=== PATIENT | male | born 1960 ===

== ENCOUNTER 2018-11-01 14:24 | Inpatient (IN) | payer MEDICARE ==
[2018-11-01] MEDS ORDERED: Nitroglycerin 2% Ointment Foilpak UD TOP STA (15:16)
[2018-11-01 15:36] LABS: BASO % 0.3 % (0.0-2.0); EOS % 0.4 % (0.0-4.0); HEMOGLOBIN 13.9 g/dL (12.0-18.0); LYMPH # 1.4 K/uL (1.0-4.3); LYMPH % 11.8 % (20.0-40.0); MEAN CELL VOLUME 89.7 fl (80.0-94.0); MEAN CORPUSCULAR HEMOGLOBIN 31.6 pg (27.0-31.0); MEAN CORPUSCULAR HGB CONC 35.3 g/dL (33.0-37.0); MEAN PLATELET VOLUME 10.7 fl (7.2-11.7); MONO # 1.1 K/uL (0.0-0.8); MONO % 9.2 % (0.0-10.0); NEUT # 9.2 K/uL (1.8-7.0); NEUT % 78.3 % (50.0-75.0); RBC 4.38 Mil/uL (4.40-5.90); RED CELL DISTRIBUTION WIDTH 13.7 % (11.5-14.5); WHITE BLOOD COUNT 11.8 K/uL (4.8-10.8)
--- NOTE | 2018-11-01 15:37 | ED PDOC ---
HPI: Chest Pain Time Seen by Provider: 11/01/18 15:05 Chief Complaint (Nursing): Chest Pain Chief Complaint (Provider): Chest Pain History Per: Patient History/Exam Limitations: no limitations Onset/Duration Of Symptoms: Hrs Current Symptoms Are (Timing): Still Present Additional Complaint(s): Patient is a 58 y/o male with a PMHx of anxiety, CAD, COPD, diabetes, HTN, and hypercholesterolemia who presents to the ED for evaluation of constant, "needle- like" left-sided chest pain radiating into his left arm since 3:00 this morning. Patient states he has had cardiac related chest pain in the past but it was always in the middle or to the right side of his chest. Patient denies SOB, leg pain or swelling, and lightheadedness. Patient reports he was afraid to take rem aining Nitroglycerin since this chest pain was different. PCP: Dr. Sj Whitt Bobbin Collector: Dr. Escoto Past Medical History Reviewed: Historical Data, Nursing Documentation, Vital Signs Vital Signs: Last Vital Signs Temp 98.6 F 11/01/18 14:32 Pulse 94 H 11/01/18 14:32 Resp 16 11/01/18 14:32 BP 148/83 11/01/18 14:32 Pulse Ox 99 11/01/18 14:32 - Medical History PMH: Anxiety, CAD, COPD, Diabetes, HTN, Hypercholesterolemia Denies: Chronic Kidney Disease - Surgical History Other surgeries: abscess on back removal, angiocatheterization, right leg stent - Family History Family History: States: Hypertension - Social History Current smoker - smoking cessation education provided: No Ex-Smoker (has not smoked in the last 12 months): No - Allergies Allergies/Adverse Reactions: Allergies Allergy/AdvReac Type Severity Reaction Status Date / Time No Known Allergies Allergy Verified 12/30/12 06:25 Review of Systems ROS Statement: Except As Marked, All Systems Reviewed And Found Negative (as per HPI) Cardiovascular: Positive for: Chest Pain (left-sided) Respiratory: Negative for: Shortness of Breath Musculoskeletal: Positive for: Arm Pain (left). Negative for: Leg Pain (or swelling) Neurological: Negative for: Other (lightheadedness) Physical Exam - Reviewed Nursing Documentation Reviewed: Yes Vital Signs Reviewed: Yes - Physical Exam Appears: Positive for: Non-toxic, No Acute Distress Head Exam: Positive for: ATRAUMATIC, NORMOCEPHALIC Skin: Positive for: Warm, Dry Eye Exam: Positive for: EOMI, PERRL ENT: Negative for: Pharyngeal Erythema, Tonsillar Exudate Neck: Positive for: Painless ROM, Supple Cardiovascular/Chest: Positive for: Regular Rate, Rhythm. Negative for: Murmur Respiratory: Positive for: Normal Breath Sounds. Negative for: Respiratory Distress Gastrointestinal/Abdominal: Positive for: Soft. Negative for: Tenderness Back: Positive for: Normal Inspection. Negative for: Decreased ROM Extremity: Positive for: Normal ROM. Negative for: Deformity Lymphatic: Negative for: Adenopathy Neurological/Psych: Positive for: Awake, Alert, Mood/Affect (Anxious). Negative for: Motor/Sensory Deficits - Laboratory Results Result Diagrams: 11/01/18 15:24 11/01/18 15:24 - ECG ECG: Positive for: Interpreted By Ca ECG Rhythm: Positive for: Normal QRS, Normal ST Segment, Sinus Rhythm Rate: 92 O2 Sat by Pulse Oximetry: 99 (RA) Pulse Ox Interpretation: Normal - Radiology X-Ray: Interpreted by Ca X-Ray Interpretation: No Acute Disease - Progress Re-evaluation Time: 17:00 Condition: Unchanged - Critical Care Total Time (In Min): 30 Documented Critical Care: Time excludes all time spent performint seperately billable procedures Medical Decision Making Medical Decision Making: Time: 1523 Impression: Chest Pain with Cardiac Risk Factors DDx includes but not limited to ACS, PE, Angina, Costochondritis, Anxiety, and Reflux. Plan: Type and Screen EKG BNP CMP Drug Screen Magnesium Phosphorus TSH Troponin I Urine Dipstick CBC D-Dimer PTT Prothrombin Time Ecotrin 162 mg PO Nitroglycerin 0.5 ea TOP IV Insertion 1645 Labs demonstrate elevated troponin. EMETERIO Perry Cardiology test lead application testing who came to evaluate pt and recommends to initiate heparin bolus/infusion and ntg drip and ICU placement. EMETERIO [facility] and Dr Fleming Client Advocate. 1730 UDS +cocaine. Per Dr Perry continue with above management. Scribe Attestation: Documented by Garrett Sin, acting as a scribe for Torrie Rivera MD. Provider Scribe Attestation: All medical record entries made by the Scribe were at my direction and personally dictated by me. I have reviewed the chart and agree that the record accurately reflects my personal performance of the history, physical exam, medical decision making, and the department course for this patient. I have also personally directed, reviewed, and agree with the discharge instructions and disposition. Disposition - Clinical Impression Clinical Impression: Cocaine abuse, Chest pain, NSTEMI (non-ST elevated myocardial infarction) Counseled Patient/Family Regarding: Studies Performed, Diagnosis - Disposition Disposition Time: 16:45 Condition: CRITICAL - Pt Status Changed To: Hospital Disposition Of: Inpatient - Admit Certification Admit to Inpatient:: After my assessment, the patient will require hospitalization for at least two midnights. This is because of the severity of symptoms shown, intensity of services needed, and/or the medical risk in this patient being treated as an outpatient. - POA Present On Arrival: None
[2018-11-01 15:45] LABS: ALB/GLOB RATIO 1.3 (1.0-2.1); ALBUMIN 4.3 g/dL (3.5-5.0); ALT/SGPT 29 U/L (21-72); AST/SGOT 27 U/L (17-59); BLOOD UREA NITROGEN 24 mg/dl (9-20); CALCIUM 9.4 mg/dL (8.4-10.2); GFR NON-AFRICAN AMERICAN > 60
[2018-11-01 16:02] LABS: INR 1.1; PROTHROMBIN TIME 12.1 Seconds (9.8-13.1)
[2018-11-01 16:05] LABS: PARTIAL THROMBOPLASTIN TIME 29.2 Seconds (25.6-37.1)
[2018-11-01 16:14] LABS: B-TYPE NATRIURETIC PEPTIDE 126 pg/ml (0-900)
--- NOTE | 2018-11-01 16:48 | RAD ---
Date of service: 11/01/2018 HISTORY: Chest pain COMPARISON: Comparison chest dated 06/18/2012. TECHNIQUE: Chest PA and lateral views FINDINGS: LUNGS: No acute consolidation. Small nodular density seen in the right lateral lower lung field overlying the right anterior 4th rib may represent granuloma or parenchymal nodule and appears relatively unchanged from prior study PLEURA: No significant pleural effusion identified. No pneumothorax apparent. CARDIOVASCULAR: No aortic atherosclerotic calcification present. Normal cardiac size. No pulmonary vascular congestion. OSSEOUS STRUCTURES: Mild multilevel degenerative spondylosis of the thoracic spine VISUALIZED UPPER ABDOMEN: Normal. OTHER FINDINGS: None. IMPRESSION: No acute consolidation. Small nodular density seen in the right lateral lower lung field overlying the right anterior 4th rib may represent granuloma or parenchymal nodule and appears relatively unchanged from prior study
[2018-11-01 16:49] LABS: BARBITURATES, UR NEGATIVE (NEGATIVE); BENZODIAZEPINES, UR NEGATIVE (NEGATIVE); OPIATES, UR NEGATIVE (NEGATIVE); PHENCYCLIDINE, UR NEGATIVE (NEGATIVE)
[2018-11-01] MEDS ORDERED: Nitroglycerin 50mg in D5W 50 MG/250 ML BOTTLE IV STA (16:51)
[2018-11-01] MEDS ORDERED: Nitroglycerin 50mg in D5W 50 MG/250 ML BOTTLE IV ONE (17:43)
[2018-11-01 18:02] VITALS: BMI 25.7
[2018-11-01] MEDS: Heparin 25,000units in D5W 25,000 UNITS/250 ML BAG IV SCH (18:09)
--- NOTE | 2018-11-01 18:12 | CP.PCM.HP ---
<Shalini Oshea - Last Filed: 11/01/18 19:21> History of Present Illness - History of Present Illness History of Present Illness: 58 y/o male with a PMHx of anxiety, CAD, COPD, diabetes, HTN, and hypercholesterolemia presents to the ED complaining of left-sided chest pain onset 3 am this morning. Described as constant, "needle-like" radiating to his left arm. Patient states he has had chest pain in the past but not as strong as this one. He reports taking Advil 2 tablets w/o relief. Patient endorses having Nitroglycerin SL at home but he was afraid to take it. Patient denies SOB, palpitations, dizziness/lightheadedness, leg pain or swelling, no recent illness, headaches, diaphoresis, no urinary sx or changes in BM. Patient also denies ilicit drugs use. PCP: Dr. Sj Whitt Marine Diesel Technician: Dr. Escoto PMH: Anxiety, CAD, COPD, Diabetes, HTN, Hypercholesterolemia PSH: removal of abscess in the back, angiocatheterization, right leg stent FHM: mother with HTN, CA and dementia Meds: as bellow NKDA SH: denies tobacco, + etoh socially, denies drugs use (utox + for cocaine) Present on Admission - Present on Admission Any Indicators Present on Admission: No Review of Systems - Review of Systems All systems: reviewed and no additional remarkable complaints except (HPI) Past Patient History - Infectious Disease Hx of Infectious Diseases: None - Past Social History Smoking Status: Never Smoked - CARDIAC Hx Hypercholesterolemia: Yes Hx Hypertension: Yes - PULMONARY Hx Chronic Obstructive Pulmonary Disease (COPD): Yes - NEUROLOGICAL Hx Neurological Disorder: No - HEENT Hx HEENT Problems: No - RENAL Hx Chronic Kidney Disease: No - ENDOCRINE/METABOLIC Hx Endocrine Disorders: No - HEMATOLOGICAL/ONCOLOGICAL Hx Blood Disorders: No - INTEGUMENTARY Hx Dermatological Problems: No - MUSCULOSKELETAL/RHEUMATOLOGICAL Hx Musculoskeletal Disorders: No - GASTROINTESTINAL Hx Gastrointestinal Disorders: No - GENITOURINARY/GYNECOLOGICAL Hx Genitourinary Disorders: No - PSYCHIATRIC Hx Anxiety: Yes - SURGICAL HISTORY Hx Surgeries: No Meds Allergies/Adverse Reactions: Allergies Allergy/AdvReac Type Severity Reaction Status Date / Time No Known Allergies Allergy Verified 12/30/12 06:25 Physical Exam - Constitutional Appears: Non-toxic, No Acute Distress - Head Exam Head Exam: NORMAL INSPECTION - Eye Exam Eye Exam: EOMI, PERRL. absent: Nystagmus - ENT Exam ENT Exam: Mucous Membranes Moist - Neck Exam Neck exam: Positive for: Full Rom. Negative for: Lymphadenopathy, Tenderness, Thyromegaly - Respiratory Exam Respiratory Exam: Clear to Auscultation Bilateral, NORMAL BREATHING PATTERN. absent: Chest Wall Tenderness, Rales, Wheezes, Respiratory Distress - Cardiovascular Exam Cardiovascular Exam: REGULAR RHYTHM, +S1, +S2. absent: Tachycardia, Systolic Murmur - GI/Abdominal Exam GI & Abdominal Exam: Normal Bowel Sounds, Soft. absent: Distended, Tenderness - Extremities Exam Extremities exam: Negative for: calf tenderness, pedal edema - Neurological Exam Neurological exam: Alert, CN II-XII Intact, Oriented x3 - Psychiatric Exam Psychiatric exam: Normal Mood - Skin Skin Exam: Dry, Normal Color, Warm Results - Vital Signs Recent Vital Signs: Last Vital Signs Temp 98.6 F 11/01/18 14:32 Pulse 92 H 11/01/18 18:05 Resp 16 11/01/18 14:32 BP 134/70 11/01/18 17:49 Pulse Ox 99 11/01/18 18:05 - Labs Result Diagrams: 11/01/18 15:24 11/01/18 15:24 Labs: Laboratory Results - last 24 hr 11/01/18 11/01/18 11/01/18 15:24 15:24 15:24 WBC 11.8 H RBC 4.38 L Hgb 13.9 Hct 39.3 MCV 89.7 MCH 31.6 H MCHC 35.3 RDW 13.7 Plt Count 224 MPV 10.7 Neut % (Auto) 78.3 H Lymph % (Auto) 11.8 L Gentry % (Auto) 9.2 Eos % (Auto) 0.4 Baso % (Auto) 0.3 Neut # (Auto) 9.2 H Lymph # (Auto) 1.4 Gentry # (Auto) 1.1 H Eos # (Auto) 0.0 Baso # (Auto) 0.0 PT 12.1 INR 1.1 APTT 29.2 D-Dimer, Quantitative 216 Sodium 137 Potassium 3.7 Chloride 102 Carbon Dioxide 22 Anion Gap 17 BUN 24 H Creatinine 0.9 Est GFR ( Amer) > 60 Est GFR (Non-Af Amer) > 60 Random Glucose 204 H Calcium 9.4 Phosphorus 3.1 Magnesium 2.1 Total Bilirubin 0.6 AST 27 ALT 29 Alkaline Phosphatase 77 Troponin I 0.1520 H* NT-Pro-B Natriuret Pep 126 Total Protein 7.6 Albumin 4.3 Globulin 3.3 Albumin/Globulin Ratio 1.3 TSH 3rd Generation 1.83 Urine Opiates Screen Urine Methadone Screen Ur Barbiturates Screen Ur Phencyclidine Scrn Ur Amphetamines Screen U Benzodiazepines Scrn U Oth Cocaine Metabols U Cannabinoids Screen Blood Type Antibody Screen BBK History Checked 11/01/18 11/01/18 15:38 16:02 WBC RBC Hgb Hct MCV MCH MCHC RDW Plt Count MPV Neut % (Auto) Lymph % (Auto) Gentry % (Auto) Eos % (Auto) Baso % (Auto) Neut # (Auto) Lymph # (Auto) Gentry # (Auto) Eos # (Auto) Baso # (Auto) PT INR APTT D-Dimer, Quantitative Sodium Potassium Chloride Carbon Dioxide Anion Gap BUN Creatinine Est GFR ( Amer) Est GFR (Non-Af Amer) Random Glucose Calcium Phosphorus Magnesium Total Bilirubin AST ALT Alkaline Phosphatase Troponin I NT-Pro-B Natriuret Pep Total Protein Albumin Globulin Albumin/Globulin Ratio TSH 3rd Generation Urine Opiates Screen Negative Urine Methadone Screen Negative Ur Barbiturates Screen Negative Ur Phencyclidine Scrn Negative Ur Amphetamines Screen Negative U Benzodiazepines Scrn Negative U Oth Cocaine Metabols Positive H U Cannabinoids Screen Negative Blood Type A POSITIVE Antibody Screen Negative BBK History Checked No verified bt Assessment & Plan - Assessment and Plan (Free Text) Assessment: 58 yo Male patient with PMH of anxiety, CAD, COPD, Diabetes, HTN and HLD is admitted due to NSTEMI. Plan: NSTEMI - admit to [facility] - troponin x1 elevated, f/u trending - EKG: Normal Sinus Rhythm, normal QRS, no ST changes. - s/p nitro top and ASA - Utox + cocaine - on heparin bolus/infusion and nitro drip - Cardio consulted, recs appreciated - Critical care consulted, appreciated input. - continue ASA - labs in am. Cocaine abuse - utox + cocaine - pt denies use HTN - chronic controlled - continue home meds Diabetes Mellitus - controlled - sliding scale coverage - accuchecks CAD - cath 4 yrs ago - stable - continue home meds HDL - on statin - lipid panel in am DVT ppx - on heparin drip Case discussed with Dr Ryan <Jonathan Ryan - Last Filed: 11/01/18 23:45> Results - Vital Signs Recent Vital Signs: Last Vital Signs Temp 98.3 F 11/01/18 20:15 Pulse 74 11/01/18 22:00 Resp 16 11/01/18 22:00 BP 120/81 11/01/18 22:00 Pulse Ox 97 11/01/18 22:00 - Labs Result Diagrams: 11/01/18 15:24 11/01/18 15:24 Labs: Laboratory Results - last 24 hr 11/01/18 11/01/18 11/01/18 15:24 15:24 15:24 WBC 11.8 H RBC 4.38 L Hgb 13.9 Hct 39.3 MCV 89.7 MCH 31.6 H MCHC 35.3 RDW 13.7 Plt Count 224 MPV 10.7 Neut % (Auto) 78.3 H Lymph % (Auto) 11.8 L Gentry % (Auto) 9.2 Eos % (Auto) 0.4 Baso % (Auto) 0.3 Neut # (Auto) 9.2 H Lymph # (Auto) 1.4 Gentry # (Auto) 1.1 H Eos # (Auto) 0.0 Baso # (Auto) 0.0 PT 12.1 INR 1.1 APTT 29.2 D-Dimer, Quantitative 216 Sodium 137 Potassium 3.7 Chloride 102 Carbon Dioxide 22 Anion Gap 17 BUN 24 H Creatinine 0.9 Est GFR ( Amer) > 60 Est GFR (Non-Af Amer) > 60 POC Glucose (mg/dL) Random Glucose 204 H Calcium 9.4 Phosphorus 3.1 Magnesium 2.1 Total Bilirubin 0.6 AST 27 ALT 29 Alkaline Phosphatase 77 Troponin I 0.1520 H* NT-Pro-B Natriuret Pep 126 Total Protein 7.6 Albumin 4.3 Globulin 3.3 Albumin/Globulin Ratio 1.3 TSH 3rd Generation 1.83 Urine Color Urine Clarity Urine pH Ur Specific [place] Urine Protein Urine Glucose (UA) Urine Ketones Urine Blood Urine Nitrate Urine Bilirubin Urine Urobilinogen Ur Leukocyte Esterase Urine RBC (Auto) Urine Microscopic WBC Ur Squamous Epith Cells Urine Opiates Screen Urine Methadone Screen Ur Barbiturates Screen Ur Phencyclidine Scrn Ur Amphetamines Screen U Benzodiazepines Scrn U Oth Cocaine Metabols U Cannabinoids Screen Blood Type Antibody Screen BBK History Checked 11/01/18 11/01/18 11/01/18 15:38 16:02 19:45 WBC RBC Hgb Hct MCV MCH MCHC RDW Plt Count MPV Neut % (Auto) Lymph % (Auto) Gentry % (Auto) Eos % (Auto) Baso % (Auto) Neut # (Auto) Lymph # (Auto) Gentry # (Auto) Eos # (Auto) Baso # (Auto) PT INR APTT D-Dimer, Quantitative Sodium Potassium Chloride Carbon Dioxide Anion Gap BUN Creatinine Est GFR ( Amer) Est GFR (Non-Af Amer) POC Glucose (mg/dL) Random Glucose Calcium Phosphorus Magnesium Total Bilirubin AST ALT Alkaline Phosphatase Troponin I NT-Pro-B Natriuret Pep Total Protein Albumin Globulin Albumin/Globulin Ratio TSH 3rd Generation Urine Color Yellow Urine Clarity Clear Urine pH 6.0 Ur Specific [place] 1.023 Urine Protein Negative Urine Glucose (UA) >=500 Urine Ketones Negative Urine Blood Negative Urine Nitrate Negative Urine Bilirubin Negative Urine Urobilinogen 1.0 Ur Leukocyte Esterase Neg Urine RBC (Auto) 2 Urine Microscopic WBC 1 Ur Squamous Epith Cells < 1 Urine Opiates Screen Negative Urine Methadone Screen Negative Ur Barbiturates Screen Negative Ur Phencyclidine Scrn Negative Ur Amphetamines Screen Negative U Benzodiazepines Scrn Negative U Oth Cocaine Metabols Positive H U Cannabinoids Screen Negative Blood Type A POSITIVE Antibody Screen Negative BBK History Checked No verified bt 11/01/18 21:43 WBC RBC Hgb Hct MCV MCH MCHC RDW Plt Count MPV Neut % (Auto) Lymph % (Auto) Gentry % (Auto) Eos % (Auto) Baso % (Auto) Neut # (Auto) Lymph # (Auto) Gentry # (Auto) Eos # (Auto) Baso # (Auto) PT INR APTT D-Dimer, Quantitative Sodium Potassium Chloride Carbon Dioxide Anion Gap BUN Creatinine Est GFR ( Amer) Est GFR (Non-Af Amer) POC Glucose (mg/dL) 198 H Random Glucose Calcium Phosphorus Magnesium Total Bilirubin AST ALT Alkaline Phosphatase Troponin I NT-Pro-B Natriuret Pep Total Protein Albumin Globulin Albumin/Globulin Ratio TSH 3rd Generation Urine Color Urine Clarity Urine pH Ur Specific [place] Urine Protein Urine Glucose (UA) Urine Ketones Urine Blood Urine Nitrate Urine Bilirubin Urine Urobilinogen Ur Leukocyte Esterase Urine RBC (Auto) Urine Microscopic WBC Ur Squamous Epith Cells Urine Opiates Screen Urine Methadone Screen Ur Barbiturates Screen Ur Phencyclidine Scrn Ur Amphetamines Screen U Benzodiazepines Scrn U Oth Cocaine Metabols U Cannabinoids Screen Blood Type Antibody Screen BBK History Checked Attending/Attestation - Attestation I have personally seen and examined this patient.: Yes I have fully participated in the care of the patient.: Yes I have reviewed all pertinent clinical information: Yes Notes (Text): 11/01/18 23:45 Patient seen and examined with resident. Case discussed and agreed with assessment and plan of management.
[2018-11-01 20:15] LABS: SQUAMOUS EPITHIAL < 1 /hpf (0-5); URINE BILIRUBIN NEGATIVE (NEGATIVE); URINE BLOOD NEGATIVE (NEGATIVE); URINE CLARITY CLEAR (Clear); URINE COLOR YELLOW (YELLOW); URINE GLUCOSE (UA) >=500 mg/dL (NEGATIVE); URINE LEUKOCYTE ESTERASE NEG Leu/uL (Negative); URINE PROTEIN NEGATIVE (NEGATIVE)
[2018-11-01] MEDS: Insulin Lispro (humaLOG) 100 Units/ml Inj SC SCH (23:00)
--- NOTE | 2018-11-02 04:08 | CON ---
DATE: 11/01/2018 CARDIOLOGY CONSULTATION REASON FOR CONSULTATION: Chest pain. HISTORY OF PRESENT ILLNESS: The patient is a 58-year-old male who has a history of coronary artery disease, underwent coronary stenting some two years ago at [facility]. He presented because of retrosternal chest pain, not radiating. The patient denies any associated diaphoresis or shortness of breath. SOCIAL HISTORY: The patient is a smoker. Occasional drinker. He is retired. He used to work in cleaning apartment buildings . MEDICATIONS: Home medications included Nitro-Dur, Plavix. REVIEW OF SYSTEMS: No nausea or vomiting. No fever or chills. PHYSICAL EXAMINATION: GENERAL: The patient is a middle-aged male who does not appear to be in any distress. VITAL SIGNS: Blood pressure 148/83, heart rate 94, temperature 98.6, respirations 16. HEENT: Normocephalic. NECK: No JVD. CHEST: Clear. HEART: S1 and S2, regular. ABDOMEN: Soft. EXTREMITIES: No edema. LABORATORY DATA: Urine drug screen is positive for cocaine. SMA-7: Sodium 137, potassium 3.7, chloride 102, CO2 of 22, glucose 104, BUN 24, creatinine is 0.9. Troponin is 0.152. PT, PTT, INR and D-Dimer are within normal limits. CBC: WBC is 15.7, hemoglobin today is 9.3, white count is 11.8, platelet count 20,000 to 24,000. EKG revealed sinus rhythm, subtle lateral ST segment depression. ASSESSMENT: 1. Chest pain, considered [id number] myocardial infarction. 2. Cocaine abuse. 3. History of coronary artery stenting two years ago at [facility]. RECOMMENDATIONS: Admit the patient to CCU. Start intravenous heparin infusion in a therapeutic regimen as well as a Tridil infusion. The patient received aspirin 162 mg and has been on daily Plavix at home, which will be continued. I will avoid beta-blockers in view of recent cocaine abuse. Start Lipitor at 40 mg once a day. Obtain a bedside echo. The case was discussed with Dr. Siddiqi, the supervisor show operations on-call today. If there is no relief of chest pain on current medications, an urgent cardiac catheterization will be considered. Brad Osei MD
--- NOTE | 2018-11-02 04:31 | CON ---
PROCEDURE DATE: 11/01/2018 The patient is seen at the bedside at the request of the ER physician for evaluation of left precordial pain with radiation to left arm. HISTORY OF PRESENT ILLNESS: Ms. Barros is a 58-year-old male, nonsmoker, social EtOH with history significant for anxiety, coronary artery disease, status post cardiac catheterization in the past with unclear details, also known to have diabetes, hypertension, and hyperlipidemia. The patient was seen by Dr. Peterson, his clipper automatic, and given pain medications for the pain on the left chest. The patient took three out of the five pills together and did not feel better, hence prompted to come to emergency room for further evaluation. In ER, the patient was noted to have a temperature 98.6, heart rate 94 and regular, respiratory rate 16, blood pressure 148/83, pulse oximetry 99% on room air. Examination was unremarkable. Lab data showed mild leukocytosis, normal BUN and creatinine, normal chest x-ray, but elevated troponin. EKG unremarkable. The patient was also noted to have cocaine positive in the urine drug screen. After consultation with Dr. Osei, pressure dispatcher; the patient was started on heparin and Tridil drip and being admitted to ICU. REVIEW OF SYSTEMS: Denies fever, chills, cough, or shortness of breath. Pain is described as needle-like sensation, more on the left side of chest with radiation to left arm since this morning. No nausea or vomiting. No dizziness. No headache. No palpitations. ALLERGIES: NONE DOCUMENTED. MEDICATIONS: His medications outside include pain medications and medication for diabetes and hypertension, but the names are not known. PHYSICAL EXAMINATION: GENERAL: Middle-aged, well-built male, oriented to name, place, and time. VITAL SIGNS: Temperature 98.6, heart rate 92 and regular, blood pressure 148/83, respiratory rate 16, saturation 99% on room air. Weight 180 pounds. HEAD, EYES, EARS, NOSE, AND THROAT: Pupils are reactive. Conjunctivae pink. Sclerae are white. NECK: Supple. Trachea is central. CHEST: Bilateral breath sounds, clear to auscultation. HEART: Rhythm regular. S1, S2 normal intensity. No S3, S4 gallop. No audible murmur. ABDOMEN: Bowel sounds are present. Soft. Liver and spleen not palpable. Bladder not distended. EXTREMITIES: No clubbing, cyanosis, or edema. NEUROLOGIC: Nonfocal. LABORATORY DATA: WBC 11.8, hemoglobin 13.9, hematocrit 39.3, platelet count of 224, neutrophils 78.3, lymphocytes 11.8. PT 12.1, INR 1.1, PTT of 29.2, D-dimer 216. SMA-7; sodium 137, potassium 3.7, chloride of 102, CO2 of 22, blood urea nitrogen 24, creatinine 0.9, random glucose 204, calcium 9.4, phosphorus 3.1, magnesium 2.1, total bilirubin 0.6, AST 27, and ALT 29. Troponin 0.152, albumin of 4.3, and TSH of 1.83. Drug toxic screen positive for cocaine metabolites. Chest x-ray unremarkable. EKG reportedly with no ST-T changes. IMPRESSION: A 58-year-old male with a history significant for diabetes, hypertension, hyperlipidemia, previous coronary artery disease, status post cardiac catheterization, questionable stent placement with history of pain in the lung and his back, seen by clipper automatic, given pain medications, took extra three pills, now presenting with pain on the left precordial area with radiation to the left arm. Chest x-ray, no evidence of pneumonia. EKG unremarkable. Troponin mildly elevated. Cocaine positive. We will evaluate with further troponin two more times. Follow up the EKG. We will continue Tridil and heparin as recommended by Cardiology consult. Aspirin 325 mg p.o. given. Add metoprolol 12.5 mg p.o. twice daily. Heart healthy diet. Verify the medications that the patient is taking for diabetes and cholesterol, we will resume as it is available. Nik Fleming MD
[2018-11-02 06:24] LABS: BASO # 0.1 K/uL (0.0-0.2); BASO % 0.7 % (0.0-2.0); EOS # 0.1 K/uL (0.0-0.7); EOS % 1.1 % (0.0-4.0); HEMOGLOBIN 13.5 g/dL (12.0-18.0); LYMPH # 2.5 K/uL (1.0-4.3); LYMPH % 29.7 % (20.0-40.0); MEAN CELL VOLUME 90.5 fl (80.0-94.0); MEAN CORPUSCULAR HEMOGLOBIN 31.2 pg (27.0-31.0); MEAN CORPUSCULAR HGB CONC 34.5 g/dL (33.0-37.0); MEAN PLATELET VOLUME 10.8 fl (7.2-11.7); MONO # 0.8 K/uL (0.0-0.8); MONO % 10.1 % (0.0-10.0); NEUT # 4.8 K/uL (1.8-7.0); NEUT % 58.4 % (50.0-75.0); RBC 4.33 Mil/uL (4.40-5.90); RED CELL DISTRIBUTION WIDTH 13.7 % (11.5-14.5); WHITE BLOOD COUNT 8.3 K/uL (4.8-10.8)
[2018-11-02] MEDS: Levothyroxine 25 MCG TAB PO SCH (06:27)
[2018-11-02] MEDS: Insulin Lispro (humaLOG) 100 Units/ml Inj SC SCH ×4 (06:36→21:30)
[2018-11-02 06:45] LABS: LDL CHOLESTEROL 131 mg/dL (0-129)
[2018-11-02 06:49] LABS: BLOOD UREA NITROGEN 22 mg/dl (9-20); CALCIUM 9.1 mg/dL (8.4-10.2); GFR NON-AFRICAN AMERICAN > 60; HDL CHOLESTEROL 28 MG/DL (30-70)
--- NOTE | 2018-11-02 07:33 | CP.CCUPN ---
CCU Subjective - Physician Review Events Since Last Encounter (Free Text): 11/02/18 18:46 The patient was Seen/interviewed and examined by me at the bedside during ICU round, Medical records reviewed and Management issues were discussed and formulated with the house staff. Events reviewed Patient is 58 years old male with past medical history of hypertension, hypercholesterolemia, diabetes, coronary artery disease status post stent, COPD and anxiety Who presented to the emergency room for evaluation of continence tent left sided chest pain No EKG changes but borderline positive trop Patient has been on heparin drip and nitroglycerin drip Doing better today, chest pain-free Patient is scheduled for cardiac cath on Friday CCU Objective - Vital Signs / Intake & Output Vital Signs (Last 4 hours): Vital Signs Temp Pulse Resp BP Pulse Ox 11/02/18 05:58 98 F 86 18 109/76 95 11/02/18 04:00 68 14 116/71 98 Intake and Output (Last 8hrs): Intake & Output 11/01/18 11/02/18 11/02/18 22:59 06:59 14:59 Intake Total 31 164 Output Total 180 200 Balance -149 -36 Weight 159 lb 8 oz Intake: IV 31 104 Oral 60 Output: Urine 180 200 Urine, Voided 180 200 - Physical Exam Physical Exam Limitations: Positive for: Clinical Condition Head: Positive for: Atraumatic, Normocephalic Pupils: Positive for: PERRL. Negative for: Sluggish, Non-Reactive Extroacular Muscles: Positive for: EOMI Conjunctiva: Positive for: Normal. Negative for: Injected, Icteric Mouth: Positive for: Moist Mucous Membranes. Negative for: Dry, Drooling Neck: Positive for: Normal Range of Motion, Trachea Midline. Negative for: Meningeal Signs, MIDLINE TENDERNESS, Paraspinal Tenderness, JVD, Lymphadenopathy, Bruit, Other Respiratory/Chest: Positive for: Clear to Auscultation, Good Air Exchange. Negative for: Respiratory Distress, Accessory Muscle Use Cardiovascular: Positive for: Regular Rate and Rhythm, Normal S1, S2. Negative for: Murmurs Abdomen: Positive for: Normal Bowel Sounds. Negative for: Tenderness, Distention Neurological: Positive for: GCS=15, CN II-XII Intact, Speech Normal Psychiatric: Positive for: Alert, Oriented x 3, Normal Insight, Normal Concentration - Medications Active Medications: Active Medications Generic Name Dose Route Start Last Admin Trade Name Freq PRN Reason Stop Dose Admin Amlodipine Besylate 10 mg 11/02/18 09:00 Norvasc PO DAILY [facility] Aspirin 81 mg 11/02/18 09:00 Aspirin Chewable PO DAILY [facility] Atorvastatin Calcium 40 mg 11/02/18 09:00 Lipitor PO DAILY [facility] Buspirone HCl 10 mg 11/02/18 09:00 Buspar PO DAILY [facility] Clopidogrel Bisulfate 75 mg 11/02/18 09:00 Plavix PO DAILY [facility] Docusate Sodium 100 mg 11/01/18 17:19 Colace PO BID PRN Constipation Fenofibrate 145 mg 11/02/18 09:00 Tricor PO DAILY [facility] Gabapentin 300 mg 11/02/18 09:00 Neurontin PO TID [facility] Heparin Sodium/Dextrose 25,000 units in 250 mls @ 10 mls/hr 11/01/18 17:00 11/01/18 18:09 Heparin 25,000 Units/250ml In D5w IV 10 mls/hr .Q24H YAZMIN Administration Protocol Nitroglycerin/Dextrose 50 mg in 250 mls @ 1.5 mls/hr 11/01/18 16:51 11/01/18 17:49 Nitroglycerin 50 Mg/250 Ml D5w IV 11/02/18 16:50 1.5 mls/hr .Q24H STA Administration Protocol 5 MCG/MIN Insulin Human Lispro 0 units 11/01/18 23:00 11/02/18 06:36 Humalog SC 1 u ACCU-CHECK YAZMIN Administration Protocol Levothyroxine Sodium 25 mcg 11/02/18 06:30 11/02/18 06:27 Synthroid PO 25 mcg DAILY@0630 [facility] Administration Montelukast Sodium 10 mg 11/02/18 09:00 Singulair PO DAILY [facility] Pantoprazole Sodium 40 mg 11/02/18 09:00 Protonix Ec Tab PO DAILY YAZMIN - Patient Studies Lab Studies: Lab Studies 11/02/18 11/02/18 11/02/18 Range/Units 06:18 06:05 06:05 WBC (4.8-10.8) K/uL RBC (4.40-5.90) Mil/uL Hgb (12.0-18.0) g/dL Hct (35.0-51.0) % MCV (80.0-94.0) fl MCH (27.0-31.0) pg MCHC (33.0-37.0) g/dL RDW (11.5-14.5) % Plt Count (130-400) K/uL MPV (7.2-11.7) fl Neut % (Auto) (50.0-75.0) % Lymph % (Auto) (20.0-40.0) % [place] % (Auto) (0.0-10.0) % Eos % (Auto) (0.0-4.0) % Baso % (Auto) (0.0-2.0) % Neut # (Auto) (1.8-7.0) K/uL Lymph # (Auto) (1.0-4.3) K/uL [place] # (Auto) (0.0-0.8) K/uL Eos # (Auto) (0.0-0.7) K/uL Baso # (Auto) (0.0-0.2) K/uL PT (9.8-13.1) Seconds INR APTT 56.7 H (25.6-37.1) Seconds D-Dimer, Quantitative (0-230) ng/mlDDU Sodium (132-148) mmol/l Potassium (3.6-5.0) MMOL/L Chloride (98-107) mmol/L Carbon Dioxide (22-30) mmol/L Anion Gap (10-20) BUN (9-20) mg/dl Creatinine (0.8-1.5) mg/dl Est GFR ( Amer) Est GFR (Non-Af Amer) POC Glucose (mg/dL) 175 H (65-110) mg/dL Random Glucose (75-110) mg/dL Calcium (8.4-10.2) mg/dL Phosphorus (2.5-4.5) mg/dl Magnesium (1.6-2.3) MG/DL Total Bilirubin (0.2-1.3) mg/dl AST (17-59) U/L ALT (21-72) U/L Alkaline Phosphatase (38-126) U/L Troponin I 0.5060 H* (0.00-0.120) ng/mL NT-Pro-B Natriuret Pep (0-900) pg/ml Total Protein (6.3-8.2) G/DL Albumin (3.5-5.0) g/dL Globulin (2.2-3.9) gm/dL Albumin/Globulin Ratio (1.0-2.1) Triglycerides (0-149) mg/DL Cholesterol (0-199) mg/dL LDL Cholesterol Direct (0-129) mg/dL HDL Cholesterol (30-70) MG/DL TSH 3rd Generation (0.46-4.68) mIU/ML Urine Color (YELLOW) Urine Clarity (Clear) Urine pH (5.0-8.0) Ur Specific [place] (1.003-1.030) Urine Protein (NEGATIVE) mg/dL Urine Glucose (UA) (NEGATIVE) mg/dL Urine Ketones (NEGATIVE) mg/dL Urine Blood (NEGATIVE) Urine Nitrate (NEGATIVE) Urine Bilirubin (NEGATIVE) Urine Urobilinogen (0.2-1.0) mg/dL Ur Leukocyte Esterase (Negative) Ector/uL Urine RBC (Auto) (0-3) /hpf Urine Microscopic WBC (0-5) /hpf Ur Squamous Epith Cells (0-5) /hpf Urine Opiates Screen (NEGATIVE) Urine Methadone Screen (NEGATIVE) Ur Barbiturates Screen (NEGATIVE) Ur Phencyclidine Scrn (NEGATIVE) Ur Amphetamines Screen (NEGATIVE) U Benzodiazepines Scrn (NEGATIVE) U Oth Cocaine Metabols (NEGATIVE) U Cannabinoids Screen (NEGATIVE) Blood Type Antibody Screen BBK History Checked 11/02/18 11/02/18 11/01/18 Range/Units 06:05 06:05 23:44 WBC 8.3 (4.8-10.8) K/uL RBC 4.33 L (4.40-5.90) Mil/uL Hgb 13.5 (12.0-18.0) g/dL Hct 39.2 (35.0-51.0) % MCV 90.5 (80.0-94.0) fl MCH 31.2 H (27.0-31.0) pg MCHC 34.5 (33.0-37.0) g/dL RDW 13.7 (11.5-14.5) % Plt Count 210 (130-400) K/uL MPV 10.8 (7.2-11.7) fl Neut % (Auto) 58.4 (50.0-75.0) % Lymph % (Auto) 29.7 (20.0-40.0) % [place] % (Auto) 10.1 H (0.0-10.0) % Eos % (Auto) 1.1 (0.0-4.0) % Baso % (Auto) 0.7 (0.0-2.0) % Neut # (Auto) 4.8 (1.8-7.0) K/uL Lymph # (Auto) 2.5 (1.0-4.3) K/uL [place] # (Auto) 0.8 (0.0-0.8) K/uL Eos # (Auto) 0.1 (0.0-0.7) K/uL Baso # (Auto) 0.1 (0.0-0.2) K/uL PT (9.8-13.1) Seconds INR APTT 54.3 H (25.6-37.1) Seconds D-Dimer, Quantitative (0-230) ng/mlDDU Sodium 136 (132-148) mmol/l Potassium 3.7 (3.6-5.0) MMOL/L Chloride 101 (98-107) mmol/L Carbon Dioxide 27 (22-30) mmol/L Anion Gap 12 (10-20) BUN 22 H (9-20) mg/dl Creatinine 1.1 (0.8-1.5) mg/dl Est GFR ( Amer) > 60 Est GFR (Non-Af Amer) > 60 POC Glucose (mg/dL) (65-110) mg/dL Random Glucose 172 H (75-110) mg/dL Calcium 9.1 (8.4-10.2) mg/dL Phosphorus (2.5-4.5) mg/dl Magnesium (1.6-2.3) MG/DL Total Bilirubin (0.2-1.3) mg/dl AST (17-59) U/L ALT (21-72) U/L Alkaline Phosphatase (38-126) U/L Troponin I (0.00-0.120) ng/mL NT-Pro-B Natriuret Pep (0-900) pg/ml Total Protein (6.3-8.2) G/DL Albumin (3.5-5.0) g/dL Globulin (2.2-3.9) gm/dL Albumin/Globulin Ratio (1.0-2.1) Triglycerides 457 H (0-149) mg/DL Cholesterol 188 (0-199) mg/dL LDL Cholesterol Direct 131 H (0-129) mg/dL HDL Cholesterol 28 L (30-70) MG/DL TSH 3rd Generation (0.46-4.68) mIU/ML Urine Color (YELLOW) Urine Clarity (Clear) Urine pH (5.0-8.0) Ur Specific [place] (1.003-1.030) Urine Protein (NEGATIVE) mg/dL Urine Glucose (UA) (NEGATIVE) mg/dL Urine Ketones (NEGATIVE) mg/dL Urine Blood (NEGATIVE) Urine Nitrate (NEGATIVE) Urine Bilirubin (NEGATIVE) Urine Urobilinogen (0.2-1.0) mg/dL Ur Leukocyte Esterase (Negative) Ector/uL Urine RBC (Auto) (0-3) /hpf Urine Microscopic WBC (0-5) /hpf Ur Squamous Epith Cells (0-5) /hpf Urine Opiates Screen (NEGATIVE) Urine Methadone Screen (NEGATIVE) Ur Barbiturates Screen (NEGATIVE) Ur Phencyclidine Scrn (NEGATIVE) Ur Amphetamines Screen (NEGATIVE) U Benzodiazepines Scrn (NEGATIVE) U Oth Cocaine Metabols (NEGATIVE) U Cannabinoids Screen (NEGATIVE) Blood Type Antibody Screen BBK History Checked 11/01/18 11/01/18 11/01/18 Range/Units 23:44 21:43 19:45 WBC (4.8-10.8) K/uL RBC (4.40-5.90) Mil/uL Hgb (12.0-18.0) g/dL Hct (35.0-51.0) % MCV (80.0-94.0) fl MCH (27.0-31.0) pg MCHC (33.0-37.0) g/dL RDW (11.5-14.5) % Plt Count (130-400) K/uL MPV (7.2-11.7) fl Neut % (Auto) (50.0-75.0) % Lymph % (Auto) (20.0-40.0) % [place] % (Auto) (0.0-10.0) % Eos % (Auto) (0.0-4.0) % Baso % (Auto) (0.0-2.0) % Neut # (Auto) (1.8-7.0) K/uL Lymph # (Auto) (1.0-4.3) K/uL [place] # (Auto) (0.0-0.8) K/uL Eos # (Auto) (0.0-0.7) K/uL Baso # (Auto) (0.0-0.2) K/uL PT (9.8-13.1) Seconds INR APTT (25.6-37.1) Seconds D-Dimer, Quantitative (0-230) ng/mlDDU Sodium (132-148) mmol/l Potassium (3.6-5.0) MMOL/L Chloride (98-107) mmol/L Carbon Dioxide (22-30) mmol/L Anion Gap (10-20) BUN (9-20) mg/dl Creatinine (0.8-1.5) mg/dl Est GFR ( Amer) Est GFR (Non-Af Amer) POC Glucose (mg/dL) 198 H (65-110) mg/dL Random Glucose (75-110) mg/dL Calcium (8.4-10.2) mg/dL Phosphorus (2.5-4.5) mg/dl Magnesium (1.6-2.3) MG/DL Total Bilirubin (0.2-1.3) mg/dl AST (17-59) U/L ALT (21-72) U/L Alkaline Phosphatase (38-126) U/L Troponin I 0.3930 H* (0.00-0.120) ng/mL NT-Pro-B Natriuret Pep (0-900) pg/ml Total Protein (6.3-8.2) G/DL Albumin (3.5-5.0) g/dL Globulin (2.2-3.9) gm/dL Albumin/Globulin Ratio (1.0-2.1) Triglycerides (0-149) mg/DL Cholesterol (0-199) mg/dL LDL Cholesterol Direct (0-129) mg/dL HDL Cholesterol (30-70) MG/DL TSH 3rd Generation (0.46-4.68) mIU/ML Urine Color Yellow (YELLOW) Urine Clarity Clear (Clear) Urine pH 6.0 (5.0-8.0) Ur Specific [place] 1.023 (1.003-1.030) Urine Protein Negative (NEGATIVE) mg/dL Urine Glucose (UA) >=500 (NEGATIVE) mg/dL Urine Ketones Negative (NEGATIVE) mg/dL Urine Blood Negative (NEGATIVE) Urine Nitrate Negative (NEGATIVE) Urine Bilirubin Negative (NEGATIVE) Urine Urobilinogen 1.0 (0.2-1.0) mg/dL Ur Leukocyte Esterase Neg (Negative) Ector/uL Urine RBC (Auto) 2 (0-3) /hpf Urine Microscopic WBC 1 (0-5) /hpf Ur Squamous Epith Cells < 1 (0-5) /hpf Urine Opiates Screen (NEGATIVE) Urine Methadone Screen (NEGATIVE) Ur Barbiturates Screen (NEGATIVE) Ur Phencyclidine Scrn (NEGATIVE) Ur Amphetamines Screen (NEGATIVE) U Benzodiazepines Scrn (NEGATIVE) U Oth Cocaine Metabols (NEGATIVE) U Cannabinoids Screen (NEGATIVE) Blood Type Antibody Screen BBK History Checked 11/01/18 11/01/18 11/01/18 Range/Units 16:02 15:38 15:24 WBC (4.8-10.8) K/uL RBC (4.40-5.90) Mil/uL Hgb (12.0-18.0) g/dL Hct (35.0-51.0) % MCV (80.0-94.0) fl MCH (27.0-31.0) pg MCHC (33.0-37.0) g/dL RDW (11.5-14.5) % Plt Count (130-400) K/uL MPV (7.2-11.7) fl Neut % (Auto) (50.0-75.0) % Lymph % (Auto) (20.0-40.0) % [place] % (Auto) (0.0-10.0) % Eos % (Auto) (0.0-4.0) % Baso % (Auto) (0.0-2.0) % Neut # (Auto) (1.8-7.0) K/uL Lymph # (Auto) (1.0-4.3) K/uL [place] # (Auto) (0.0-0.8) K/uL Eos # (Auto) (0.0-0.7) K/uL Baso # (Auto) (0.0-0.2) K/uL PT 12.1 (9.8-13.1) Seconds INR 1.1 APTT 29.2 (25.6-37.1) Seconds D-Dimer, Quantitative 216 (0-230) ng/mlDDU Sodium (132-148) mmol/l Potassium (3.6-5.0) MMOL/L Chloride (98-107) mmol/L Carbon Dioxide (22-30) mmol/L Anion Gap (10-20) BUN (9-20) mg/dl Creatinine (0.8-1.5) mg/dl Est GFR ( Amer) Est GFR (Non-Af Amer) POC Glucose (mg/dL) (65-110) mg/dL Random Glucose (75-110) mg/dL Calcium (8.4-10.2) mg/dL Phosphorus (2.5-4.5) mg/dl Magnesium (1.6-2.3) MG/DL Total Bilirubin (0.2-1.3) mg/dl AST (17-59) U/L ALT (21-72) U/L Alkaline Phosphatase (38-126) U/L Troponin I (0.00-0.120) ng/mL NT-Pro-B Natriuret Pep (0-900) pg/ml Total Protein (6.3-8.2) G/DL Albumin (3.5-5.0) g/dL Globulin (2.2-3.9) gm/dL Albumin/Globulin Ratio (1.0-2.1) Triglycerides (0-149) mg/DL Cholesterol (0-199) mg/dL LDL Cholesterol Direct (0-129) mg/dL HDL Cholesterol (30-70) MG/DL TSH 3rd Generation (0.46-4.68) mIU/ML Urine Color (YELLOW) Urine Clarity (Clear) Urine pH (5.0-8.0) Ur Specific [place] (1.003-1.030) Urine Protein (NEGATIVE) mg/dL Urine Glucose (UA) (NEGATIVE) mg/dL Urine Ketones (NEGATIVE) mg/dL Urine Blood (NEGATIVE) Urine Nitrate (NEGATIVE) Urine Bilirubin (NEGATIVE) Urine Urobilinogen (0.2-1.0) mg/dL Ur Leukocyte Esterase (Negative) Ector/uL Urine RBC (Auto) (0-3) /hpf Urine Microscopic WBC (0-5) /hpf Ur Squamous Epith Cells (0-5) /hpf Urine Opiates Screen Negative (NEGATIVE) Urine Methadone Screen Negative (NEGATIVE) Ur Barbiturates Screen Negative (NEGATIVE) Ur Phencyclidine Scrn Negative (NEGATIVE) Ur Amphetamines Screen Negative (NEGATIVE) U Benzodiazepines Scrn Negative (NEGATIVE) U Oth Cocaine Metabols Positive H (NEGATIVE) U Cannabinoids Screen Negative (NEGATIVE) Blood Type A POSITIVE Antibody Screen Negative BBK History Checked No verified bt 11/01/18 11/01/18 Range/Units 15:24 15:24 WBC 11.8 H (4.8-10.8) K/uL RBC 4.38 L (4.40-5.90) Mil/uL Hgb 13.9 (12.0-18.0) g/dL Hct 39.3 (35.0-51.0) % MCV 89.7 (80.0-94.0) fl MCH 31.6 H (27.0-31.0) pg MCHC 35.3 (33.0-37.0) g/dL RDW 13.7 (11.5-14.5) % Plt Count 224 (130-400) K/uL MPV 10.7 (7.2-11.7) fl Neut % (Auto) 78.3 H (50.0-75.0) % Lymph % (Auto) 11.8 L (20.0-40.0) % [place] % (Auto) 9.2 (0.0-10.0) % Eos % (Auto) 0.4 (0.0-4.0) % Baso % (Auto) 0.3 (0.0-2.0) % Neut # (Auto) 9.2 H (1.8-7.0) K/uL Lymph # (Auto) 1.4 (1.0-4.3) K/uL [place] # (Auto) 1.1 H (0.0-0.8) K/uL Eos # (Auto) 0.0 (0.0-0.7) K/uL Baso # (Auto) 0.0 (0.0-0.2) K/uL PT (9.8-13.1) Seconds INR APTT (25.6-37.1) Seconds D-Dimer, Quantitative (0-230) ng/mlDDU Sodium 137 (132-148) mmol/l Potassium 3.7 (3.6-5.0) MMOL/L Chloride 102 (98-107) mmol/L Carbon Dioxide 22 (22-30) mmol/L Anion Gap 17 (10-20) BUN 24 H (9-20) mg/dl Creatinine 0.9 (0.8-1.5) mg/dl Est GFR ( Amer) > 60 Est GFR (Non-Af Amer) > 60 POC Glucose (mg/dL) (65-110) mg/dL Random Glucose 204 H (75-110) mg/dL Calcium 9.4 (8.4-10.2) mg/dL Phosphorus 3.1 (2.5-4.5) mg/dl Magnesium 2.1 (1.6-2.3) MG/DL Total Bilirubin 0.6 (0.2-1.3) mg/dl AST 27 (17-59) U/L ALT 29 (21-72) U/L Alkaline Phosphatase 77 (38-126) U/L Troponin I 0.1520 H* (0.00-0.120) ng/mL NT-Pro-B Natriuret Pep 126 (0-900) pg/ml Total Protein 7.6 (6.3-8.2) G/DL Albumin 4.3 (3.5-5.0) g/dL Globulin 3.3 (2.2-3.9) gm/dL Albumin/Globulin Ratio 1.3 (1.0-2.1) Triglycerides (0-149) mg/DL Cholesterol (0-199) mg/dL LDL Cholesterol Direct (0-129) mg/dL HDL Cholesterol (30-70) MG/DL TSH 3rd Generation 1.83 (0.46-4.68) mIU/ML Urine Color (YELLOW) Urine Clarity (Clear) Urine pH (5.0-8.0) Ur Specific [place] (1.003-1.030) Urine Protein (NEGATIVE) mg/dL Urine Glucose (UA) (NEGATIVE) mg/dL Urine Ketones (NEGATIVE) mg/dL Urine Blood (NEGATIVE) Urine Nitrate (NEGATIVE) Urine Bilirubin (NEGATIVE) Urine Urobilinogen (0.2-1.0) mg/dL Ur Leukocyte Esterase (Negative) Ector/uL Urine RBC (Auto) (0-3) /hpf Urine Microscopic WBC (0-5) /hpf Ur Squamous Epith Cells (0-5) /hpf Urine Opiates Screen (NEGATIVE) Urine Methadone Screen (NEGATIVE) Ur Barbiturates Screen (NEGATIVE) Ur Phencyclidine Scrn (NEGATIVE) Ur Amphetamines Screen (NEGATIVE) U Benzodiazepines Scrn (NEGATIVE) U Oth Cocaine Metabols (NEGATIVE) U Cannabinoids Screen (NEGATIVE) Blood Type Antibody Screen BBK History Checked Laboratory Results - last 24 hr 11/01/18 11/01/18 11/01/18 15:24 15:24 15:24 WBC 11.8 H RBC 4.38 L Hgb 13.9 Hct 39.3 MCV 89.7 MCH 31.6 H MCHC 35.3 RDW 13.7 Plt Count 224 MPV 10.7 Neut % (Auto) 78.3 H Lymph % (Auto) 11.8 L [place] % (Auto) 9.2 Eos % (Auto) 0.4 Baso % (Auto) 0.3 Neut # (Auto) 9.2 H Lymph # (Auto) 1.4 [place] # (Auto) 1.1 H Eos # (Auto) 0.0 Baso # (Auto) 0.0 PT 12.1 INR 1.1 APTT 29.2 D-Dimer, Quantitative 216 Sodium 137 Potassium 3.7 Chloride 102 Carbon Dioxide 22 Anion Gap 17 BUN 24 H Creatinine 0.9 Est GFR ( Amer) > 60 Est GFR (Non-Af Amer) > 60 POC Glucose (mg/dL) Random Glucose 204 H Calcium 9.4 Phosphorus 3.1 Magnesium 2.1 Total Bilirubin 0.6 AST 27 ALT 29 Alkaline Phosphatase 77 Troponin I 0.1520 H* NT-Pro-B Natriuret Pep 126 Total Protein 7.6 Albumin 4.3 Globulin 3.3 Albumin/Globulin Ratio 1.3 Triglycerides Cholesterol LDL Cholesterol Direct HDL Cholesterol TSH 3rd Generation 1.83 Urine Color Urine Clarity Urine pH Ur Specific [place] Urine Protein Urine Glucose (UA) Urine Ketones Urine Blood Urine Nitrate Urine Bilirubin Urine Urobilinogen Ur Leukocyte Esterase Urine RBC (Auto) Urine Microscopic WBC Ur Squamous Epith Cells Urine Opiates Screen Urine Methadone Screen Ur Barbiturates Screen Ur Phencyclidine Scrn Ur Amphetamines Screen U Benzodiazepines Scrn U Oth Cocaine Metabols U Cannabinoids Screen Blood Type Antibody Screen BBK History Checked 11/01/18 11/01/18 11/01/18 15:38 16:02 19:45 WBC RBC Hgb Hct MCV MCH MCHC RDW Plt Count MPV Neut % (Auto) Lymph % (Auto) [place] % (Auto) Eos % (Auto) Baso % (Auto) Neut # (Auto) Lymph # (Auto) [place] # (Auto) Eos # (Auto) Baso # (Auto) PT INR APTT D-Dimer, Quantitative Sodium Potassium Chloride Carbon Dioxide Anion Gap BUN Creatinine Est GFR ( Amer) Est GFR (Non-Af Amer) POC Glucose (mg/dL) Random Glucose Calcium Phosphorus Magnesium Total Bilirubin AST ALT Alkaline Phosphatase Troponin I NT-Pro-B Natriuret Pep Total Protein Albumin Globulin Albumin/Globulin Ratio Triglycerides Cholesterol LDL Cholesterol Direct HDL Cholesterol TSH 3rd Generation Urine Color Yellow Urine Clarity Clear Urine pH 6.0 Ur Specific [place] 1.023 Urine Protein Negative Urine Glucose (UA) >=500 Urine Ketones Negative Urine Blood Negative Urine Nitrate Negative Urine Bilirubin Negative Urine Urobilinogen 1.0 Ur Leukocyte Esterase Neg Urine RBC (Auto) 2 Urine Microscopic WBC 1 Ur Squamous Epith Cells < 1 Urine Opiates Screen Negative Urine Methadone Screen Negative Ur Barbiturates Screen Negative Ur Phencyclidine Scrn Negative Ur Amphetamines Screen Negative U Benzodiazepines Scrn Negative U Oth Cocaine Metabols Positive H U Cannabinoids Screen Negative Blood Type A POSITIVE Antibody Screen Negative BBK History Checked No verified bt 11/01/18 11/01/18 11/01/18 21:43 23:44 23:44 WBC RBC Hgb Hct MCV MCH MCHC RDW Plt Count MPV Neut % (Auto) Lymph % (Auto) [place] % (Auto) Eos % (Auto) Baso % (Auto) Neut # (Auto) Lymph # (Auto) [place] # (Auto) Eos # (Auto) Baso # (Auto) PT INR APTT 54.3 H D-Dimer, Quantitative Sodium Potassium Chloride Carbon Dioxide Anion Gap BUN Creatinine Est GFR ( Amer) Est GFR (Non-Af Amer) POC Glucose (mg/dL) 198 H Random Glucose Calcium Phosphorus Magnesium Total Bilirubin AST ALT Alkaline Phosphatase Troponin I 0.3930 H* NT-Pro-B Natriuret Pep Total Protein Albumin Globulin Albumin/Globulin Ratio Triglycerides Cholesterol LDL Cholesterol Direct HDL Cholesterol TSH 3rd Generation Urine Color Urine Clarity Urine pH Ur Specific [place] Urine Protein Urine Glucose (UA) Urine Ketones Urine Blood Urine Nitrate Urine Bilirubin Urine Urobilinogen Ur Leukocyte Esterase Urine RBC (Auto) Urine Microscopic WBC Ur Squamous Epith Cells Urine Opiates Screen Urine Methadone Screen Ur Barbiturates Screen Ur Phencyclidine Scrn Ur Amphetamines Screen U Benzodiazepines Scrn U Oth Cocaine Metabols U Cannabinoids Screen Blood Type Antibody Screen BBK History Checked 11/02/18 11/02/18 11/02/18 06:05 06:05 06:05 WBC 8.3 RBC 4.33 L Hgb 13.5 Hct 39.2 MCV 90.5 MCH 31.2 H MCHC 34.5 RDW 13.7 Plt Count 210 MPV 10.8 Neut % (Auto) 58.4 Lymph % (Auto) 29.7 [place] % (Auto) 10.1 H Eos % (Auto) 1.1 Baso % (Auto) 0.7 Neut # (Auto) 4.8 Lymph # (Auto) 2.5 [place] # (Auto) 0.8 Eos # (Auto) 0.1 Baso # (Auto) 0.1 PT INR APTT D-Dimer, Quantitative Sodium 136 Potassium 3.7 Chloride 101 Carbon Dioxide 27 Anion Gap 12 BUN 22 H Creatinine 1.1 Est GFR ( Amer) > 60 Est GFR (Non-Af Amer) > 60 POC Glucose (mg/dL) Random Glucose 172 H Calcium 9.1 Phosphorus Magnesium Total Bilirubin AST ALT Alkaline Phosphatase Troponin I 0.5060 H* NT-Pro-B Natriuret Pep Total Protein Albumin Globulin Albumin/Globulin Ratio Triglycerides 457 H Cholesterol 188 LDL Cholesterol Direct 131 H HDL Cholesterol 28 L TSH 3rd Generation Urine Color Urine Clarity Urine pH Ur Specific [place] Urine Protein Urine Glucose (UA) Urine Ketones Urine Blood Urine Nitrate Urine Bilirubin Urine Urobilinogen Ur Leukocyte Esterase Urine RBC (Auto) Urine Microscopic WBC Ur Squamous Epith Cells Urine Opiates Screen Urine Methadone Screen Ur Barbiturates Screen Ur Phencyclidine Scrn Ur Amphetamines Screen U Benzodiazepines Scrn U Oth Cocaine Metabols U Cannabinoids Screen Blood Type Antibody Screen BBK History Checked 11/02/18 11/02/18 06:05 06:18 WBC RBC Hgb Hct MCV MCH MCHC RDW Plt Count MPV Neut % (Auto) Lymph % (Auto) [place] % (Auto) Eos % (Auto) Baso % (Auto) Neut # (Auto) Lymph # (Auto) [place] # (Auto) Eos # (Auto) Baso # (Auto) PT INR APTT 56.7 H D-Dimer, Quantitative Sodium Potassium Chloride Carbon Dioxide Anion Gap BUN Creatinine Est GFR ( Amer) Est GFR (Non-Af Amer) POC Glucose (mg/dL) 175 H Random Glucose Calcium Phosphorus Magnesium Total Bilirubin AST ALT Alkaline Phosphatase Troponin I NT-Pro-B Natriuret Pep Total Protein Albumin Globulin Albumin/Globulin Ratio Triglycerides Cholesterol LDL Cholesterol Direct HDL Cholesterol TSH 3rd Generation Urine Color Urine Clarity Urine pH Ur Specific [place] Urine Protein Urine Glucose (UA) Urine Ketones Urine Blood Urine Nitrate Urine Bilirubin Urine Urobilinogen Ur Leukocyte Esterase Urine RBC (Auto) Urine Microscopic WBC Ur Squamous Epith Cells Urine Opiates Screen Urine Methadone Screen Ur Barbiturates Screen Ur Phencyclidine Scrn Ur Amphetamines Screen U Benzodiazepines Scrn U Oth Cocaine Metabols U Cannabinoids Screen Blood Type Antibody Screen BBK History Checked Radiology Impressions: Radiology Impressions Chest X-Ray 11/01/18 15:14 IMPRESSION: No acute consolidation. Small nodular density seen in the right lateral lower lung field overlying the right anterior 4th rib may represent granuloma or parenchymal nodule and appears relatively unchanged from prior study EKG/Cardiology Studies: Cardiology / EKG Studies 11/02/18 EKG [ELECTROCARDIOGRAM] Routine Comment: Mode Of Transportation: Reason For Exam: NSTEMI Fingerstick Blood Sugar Results: 175 Review of Systems - Constitutional Constitutional: absent: Fever, Chills, Sweats, Weakness, Malaise - Cardiovascular Cardiovascular: absent: Acrocyanosis, Chest Pain, Chest Pain at Rest, Chest Pain with Activity, Claudication, Diaphoresis, Pain Radiating to Arm/Neck/Jaw - Respiratory Respiratory: absent: Cough, Dyspnea, Hemoptysis, Dyspnea on Exertion, Wheezing, Snoring, Stridor Critical Care Progress Note - Extremities/Vascular Does the Patient have a Central Venous Catheter?: No Does the Patient need a Central Venous Catheter?: No Does the Patient have a Bello Catheter?: No Does the Patient need a Bello Catheter?: No - Nutrition Nutrition: Nutrition Category Date Time Status NPO Diet [DIET] Diets 11/02/18 Breakfast Active Assessment/Plan (1) NSTEMI (non-ST elevated myocardial infarction) Current Visit: Yes Status: Acute Priority: High (2) Chest pain Current Visit: Yes Status: Acute Priority: High (3) Cocaine abuse Current Visit: Yes Status: Acute Priority: High
[2018-11-02] MEDS: Pantoprazole 40 mg EC Tab PO SCH (09:14)
--- NOTE | 2018-11-02 09:54 | CP.PCM.PN ---
<Margo Dean - Last Filed: 11/02/18 10:43> Subjective - Date & Time of Evaluation Date of Evaluation: 11/02/18 Time of Evaluation: 10:45 - Subjective Subjective: Pt seen at bedside, doing well denies any complaints. Denies CP, SOB, palpitations or diaphorses. Ambulating well, npo diet. Objective - Vital Signs/Intake and Output Vital Signs (last 24 hours): Temp Pulse Resp BP Pulse Ox 97.9 F 78 14 126/78 97 11/02/18 08:00 11/02/18 08:00 11/02/18 08:00 11/02/18 08:00 11/02/18 08:00 Intake and Output: 11/02/18 11/02/18 06:59 18:59 Intake Total 195 Output Total 380 Balance -185 - Medications Medications: Current Medications Amlodipine Besylate (Norvasc) 10 mg PO DAILY [facility] Aspirin (Aspirin Chewable) 81 mg PO DAILY [facility] Last Admin: 11/02/18 09:15 Dose: 81 mg Atorvastatin Calcium (Lipitor) 40 mg PO DAILY YAZMIN Buspirone HCl (Buspar) 10 mg PO DAILY [facility] Last Admin: 11/02/18 09:15 Dose: 10 mg Clopidogrel Bisulfate (Plavix) 75 mg PO DAILY [facility] Last Admin: 11/02/18 09:14 Dose: 75 mg Docusate Sodium (Colace) 100 mg PO BID PRN PRN Reason: Constipation Fenofibrate (Tricor) 145 mg PO DAILY [facility] Gabapentin (Neurontin) 300 mg PO TID [facility] Heparin Sodium/Dextrose (Heparin 25,000 Units/250ml In D5w) 25,000 units in 250 mls @ 10 mls/hr IV .Q24H YAZMIN; Protocol Last Admin: 11/01/18 18:09 Dose: 10 mls/hr Nitroglycerin/Dextrose (Nitroglycerin 50 Mg/250 Ml D5w) 50 mg in 250 mls @ 1.5 mls/hr IV .Q24H STA; Protocol Stop: 11/02/18 16:50 Last Admin: 11/01/18 17:49 Dose: 1.5 mls/hr Insulin Human Lispro (Humalog) 0 units SC ACCU-CHECK YAZMIN; Protocol Last Admin: 11/02/18 06:36 Dose: 1 u Levothyroxine Sodium (Synthroid) 25 mcg PO DAILY@0630 [facility] Last Admin: 11/02/18 06:27 Dose: 25 mcg Montelukast Sodium (Singulair) 10 mg PO DAILY [facility] Pantoprazole Sodium (Protonix Ec Tab) 40 mg PO DAILY [facility] Last Admin: 11/02/18 09:14 Dose: 40 mg - Labs Labs: 11/02/18 06:05 11/02/18 06:05 PT 12.1 Seconds (9.8-13.1) 11/01/18 15:24 INR 1.1 11/01/18 15:24 APTT 56.7 Seconds (25.6-37.1) H 11/02/18 06:05 - Constitutional Appears: Non-toxic, No Acute Distress - Head Exam Head Exam: NORMAL INSPECTION - Eye Exam Eye Exam: EOMI - ENT Exam ENT Exam: Mucous Membranes Moist - Respiratory Exam Respiratory Exam: Clear to Ausculation Bilateral. absent: Chest Wall Tenderness, Rales, Rhonchi, Wheezes - Cardiovascular Exam Cardiovascular Exam: RRR, +S1, +S2 - GI/Abdominal Exam GI & Abdominal Exam: Soft, Normal Bowel Sounds. absent: Tenderness - Extremities Exam Extremities Exam: Normal Inspection. absent: Pedal Edema - Neurological Exam Neurological Exam: Alert, Awake, Oriented x3 Assessment and Plan - Assessment and Plan (Free Text) Assessment: 58 yo Male patient with PMH of anxiety, CAD, COPD, Diabetes, HTN and HLD is admitted due to NSTEMI. Plan: NSTEMI - acute, denies chest pain this AM. VSS - troponin x3 elevated trending up. Ordered trops x2 Q 6h - EKG: Normal Sinus Rhythm, normal QRS, no ST changes. - s/p nitro top and ASA 162 - Utox + cocaine - on heparin bolus/infusion and nitro drip - Cardio consulted- Dr Osei recs appreciated - Interventional Cardio- Dr. Devang valenzuela appreciated - Critical care consulted-Dr Fleming- recs appreciated - continue ASA 81 - NPO diet - Echo ordered - F/u Trops, Echo labs in AM Cocaine abuse - utox + cocaine - avoiding beta blockers for now HTN - chronic controlled - continue norvas Diabetes Mellitus - controlled, POC 172 - sliding scale coverage Lispro - accuchecks - F/u A1c and AM labs CAD s/p stent - cath 4 yrs ago - stable - continue plavix and ASA HDL, Hypertriglyceridemia - chronic, uncontrolled - on statin and fenofibrate - lipid panel elevated Hypothyroidism - chronic, controlled - TSH 1.83 11/01/18 -continue Synthroid DVT ppx - on heparin drip <Corazon OrozcoLenashane Valencia - Last Filed: 11/02/18 14:37> Objective - Vital Signs/Intake and Output Vital Signs (last 24 hours): Temp Pulse Resp BP Pulse Ox 98.4 F 85 18 131/79 96 11/02/18 12:00 11/02/18 12:00 11/02/18 12:00 11/02/18 12:00 11/02/18 12:00 Intake and Output: 11/02/18 11/02/18 06:59 18:59 Intake Total 195 88 Output Total 380 600 Balance -185 -512 - Medications Medications: Current Medications Amlodipine Besylate (Norvasc) 10 mg PO DAILY [facility] Aspirin (Aspirin Chewable) 81 mg PO DAILY [facility] Last Admin: 11/02/18 09:15 Dose: 81 mg Atorvastatin Calcium (Lipitor) 40 mg PO DAILY [facility] Last Admin: 11/02/18 11:49 Dose: 40 mg Buspirone HCl (Buspar) 10 mg PO DAILY [facility] Last Admin: 11/02/18 09:15 Dose: 10 mg Clopidogrel Bisulfate (Plavix) 75 mg PO DAILY [facility] Last Admin: 11/02/18 09:14 Dose: 75 mg Docusate Sodium (Colace) 100 mg PO BID PRN PRN Reason: Constipation Fenofibrate (Tricor) 145 mg PO DAILY [facility] Last Admin: 11/02/18 11:47 Dose: 145 mg Gabapentin (Neurontin) 300 mg PO TID [facility] Last Admin: 11/02/18 11:48 Dose: 300 mg Heparin Sodium/Dextrose (Heparin 25,000 Units/250ml In D5w) 25,000 units in 250 mls @ 10 mls/hr IV .Q24H YAZMIN; Protocol Last Admin: 11/01/18 18:09 Dose: 10 mls/hr Nitroglycerin/Dextrose (Nitroglycerin 50 Mg/250 Ml D5w) 50 mg in 250 mls @ 1.5 mls/hr IV .Q24H STA; Protocol Stop: 11/02/18 16:50 Last Admin: 11/01/18 17:49 Dose: 1.5 mls/hr Insulin Human Lispro (Humalog) 0 units SC ACCU-CHECK YAZMIN; Protocol Last Admin: 11/02/18 11:49 Dose: 1 u Levothyroxine Sodium (Synthroid) 25 mcg PO DAILY@0630 [facility] Last Admin: 11/02/18 06:27 Dose: 25 mcg Montelukast Sodium (Singulair) 10 mg PO DAILY [facility] Last Admin: 11/02/18 11:48 Dose: 10 mg Pantoprazole Sodium (Protonix Ec Tab) 40 mg PO DAILY [facility] Last Admin: 11/02/18 09:14 Dose: 40 mg - Labs Labs: 11/02/18 06:05 11/02/18 06:05 PT 12.1 Seconds (9.8-13.1) 11/01/18 15:24 INR 1.1 11/01/18 15:24 APTT 56.7 Seconds (25.6-37.1) H 11/02/18 06:05 Attending/Attestation - Attestation I have personally seen and examined this patient.: Yes I have fully participated in the care of the patient.: Yes I have reviewed all pertinent clinical information, including history, physical exam and plan: Yes Notes (Text): NSTEMI Cocaine Abuse HTN DM Type II Hyperlipidemia Hypothyroidism - cont ASA, Plavix, Statin - Cont Heparin drip and Nitroglycerine drip - Cardio consulted - Dr Osei - he rec to continue medical mgt and Dr Osei reached out to Dr Banerjee , pt's Head Animal Trainer who stated that he wants pt transferred to [facility] and pt will have a Cardiac cath in am. - Counsled pt regarding Cocaine abuse - accucheck with coverage - started on Tricor -cont Levothyroxine
--- NOTE | 2018-11-02 10:09 | CARD ---
APPROVED REPORT Date of service: 11/02/2018 EKG Measurement Heart [id number] <Conclusion> Normal sinus rhythm Normal ECG
--- NOTE | 2018-11-02 10:26 | CARD ---
APPROVED REPORT Date of service: 11/01/2018 EKG Measurement Heart [id number] <Conclusion> Normal sinus rhythm Normal ECG
--- NOTE | 2018-11-02 12:54 | CP.PCM.PCO ---
Physician Communication Note - Physician Communication Note Physician Communication Note: I reached Dr. Estes [phone] and left him an urgent message
--- NOTE | 2018-11-02 16:23 | PN ---
DATE: 11/02/2018 SUBJECTIVE: The patient denies any chest pain or shortness of breath at this time. He is currently on Tridil and heparin infusion. PHYSICAL EXAMINATION: VITAL SIGNS: Blood pressure 131/79, heart rate 85, temperature 98.4, respirations 18. HEENT: Normocephalic. CHEST: Clear. HEART: S1 and S2, regular. ABDOMEN: Soft. EXTREMITIES: No edema. LABORATORY DATA: Today's hemoglobin, hematocrit, white count and platelet count are within normal limits. Today's SMA-7 was within normal limits except for glucose of 172 and BUN of 22. Troponin were as follows; 0.152, 0.393, and 0.506. Triglycerides are elevated at 467, and LDL cholesterol is elevated at 131. ASSESSMENT: 1. Chest pain, considered non-ST elevation myocardial infarction. 2. Cocaine abuse. 3. Diabetes mellitus. 4. Hyperlipidemia. RECOMMENDATIONS: Continue current intravenous heparin therapeutic regimen for acute coronary syndrome. Continue current Tridil infusion. Continue aspirin 81 mg once a day, Norvasc at 10 mg once a day, Plavix 75 mg once a day, TriCor at 145 mg once a day. The patient was offered cardiac catheterization today; however, he refused and he wanted to contact his data coordinator. I did ask him about the phone number of his data coordinator which he did not have, but I will try to reach Dr. Craft on my own. Case was discussed with the crm developer, Dr. Moctezuma, and was also evaluated by on-call geomagnetician, Dr. Siddiqi. Brad Osei MD
--- NOTE | 2018-11-02 20:45 | CARD ---
APPROVED REPORT Date of service: 11/02/2018 EXAM: Two-dimensional and M-mode echocardiogram with Doppler and color Doppler. Other Information Quality : GoodRhythm : NSR INDICATION Non STEMI 2D DIMENSIONS IVSd1.24 (0.7-1.1cm)LVDd3.48 (3.9-5.9cm) LVOT Diameter2.26 (1.8-2.4cm)PWd1.46 (0.7-1.1cm) IVSs1.38 (0.8-1.2cm)LVDs2.65 (2.5-4.0cm) FS (%) 23.8 %PWs1.63 (0.8-1.2cm) M-Mode DIMENSIONS Left Atrium (MM)2.88 (2.5-4.0cm)IVSd1.06 (0.7-1.1cm) Aortic Root3.16 (2.2-3.7cm)LVDd5.56 (4.0-5.6cm) Aortic Cusp Exc.2.16 (1.5-2.0cm)PWd1.25 (0.7-1.1cm) IVSs1.38 cmFS (%) 19 % LVDs4.53 (2.0-3.8cm)PWs1.38 cm Aortic Valve AoV Peak Tvazneam68.8cm/sAoV VTI11.9cmAO Peak GR.3mmHg LVOT Peak Oxjjdmbs89.1cm/sLVOT VTI10.25cmAO Mean GR.2mmHg DELIA (VMAX)1.93ky9OQM (VTI)1.84cm2 Mitral Valve MV E Ehekgrwk73.9cm/sMV DECEL [id number] A Pjvarecx78.6cm/s MV JXR60pjM/A ratio0.7MVA (PHT)3.74cm2 TDI Lateral E' Peak V7.82cm/sMedial E' Peak V5.62cm/sE/Lateral E'6.9 E/Medial E'9.6 LEFT VENTRICLE The left ventricle is normal size. There is normal left ventricular wall thickness. The left ventricular systolic function is normal. The estimated ejection fraction is 55-60% No regional wall motion abnormalities noted.. Transmitral Doppler flow pattern is Grade I-abnormal relaxation pattern. No left ventricle thrombus noted on this study. There is no ventricular septal defect visualized. There is no left ventricular aneurysm. There is no mass noted in the left ventricle. RIGHT VENTRICLE The right ventricle is normal size. There is normal right ventricular wall thickness. The right ventricular systolic function is normal. ATRIA The left atrium size is normal. The right atrium size is normal. The interatrial septum is intact with no evidence for an atrial septal defect. AORTIC VALVE The aortic valve is normal in structure. No aortic regurgitation is present. There is no aortic valvular stenosis. There is no aortic valvular vegetation. MITRAL VALVE The mitral valve is normal in structure. There is no evidence of mitral valve prolapse. There is no mitral valve stenosis. There is mild to moderate mitral valve regurgitation noted. TRICUSPID VALVE The tricuspid valve is normal in structure. There is no tricuspid valve regurgitation noted. There is no tricuspid valve prolapse or vegetation. There is no tricuspid valve stenosis. PULMONIC VALVE The pulmonary valve is normal in structure. There is no pulmonic valvular regurgitation. There is no pulmonic valvular stenosis. GREAT VESSELS The aortic root is normal in size. The ascending aorta is normal in size. The pulmonary artery is normal. The IVC is normal in size and collapses >50% with inspiration. PERICARDIAL EFFUSION There is no pericardial effusion. There is no pleural effusion. <Conclusion> The estimated ejection fraction is 55-60% Transmitral Doppler flow pattern is Grade I-abnormal relaxation pattern. The left atrium size is normal. There is mild to moderate mitral valve regurgitation noted. There is no tricuspid valve regurgitation noted.
[2018-11-02] MEDS: Enoxaparin 80 mg Syringe SC SCH (21:02)
[2018-11-02] MEDS: Insulin Detemir 100 Units/ml Inj SC SCH (21:02)
[2018-11-03 05:23] LABS: BASO # 0.1 K/uL (0.0-0.2); BASO % 0.5 % (0.0-2.0); EOS # 0.1 K/uL (0.0-0.7); EOS % 0.7 % (0.0-4.0); HEMOGLOBIN 14.6 g/dL (12.0-18.0); LYMPH # 2.3 K/uL (1.0-4.3); LYMPH % 24.2 % (20.0-40.0); MEAN CORPUSCULAR HEMOGLOBIN 31.4 pg (27.0-31.0); MEAN CORPUSCULAR HGB CONC 34.1 g/dL (33.0-37.0); MEAN PLATELET VOLUME 10.9 fl (7.2-11.7); MONO # 1.1 K/uL (0.0-0.8); MONO % 11.8 % (0.0-10.0); NEUT # 6.1 K/uL (1.8-7.0); NEUT % 62.8 % (50.0-75.0); NRBC % 0.1 % (0.0-0.0); RBC 4.64 Mil/uL (4.40-5.90); RED CELL DISTRIBUTION WIDTH 13.3 % (11.5-14.5); WHITE BLOOD COUNT 9.6 K/uL (4.8-10.8)
[2018-11-03 05:31] LABS: BLOOD UREA NITROGEN 24 mg/dl (9-20); CALCIUM 9.5 mg/dL (8.4-10.2); GFR NON-AFRICAN AMERICAN > 60
[2018-11-03] MEDS: Levothyroxine 25 MCG TAB PO SCH (06:13)
[2018-11-03] MEDS: Insulin Lispro (humaLOG) 100 Units/ml Inj SC SCH ×4 (06:13→22:00)
--- NOTE | 2018-11-03 07:55 | CP.PCM.PN ---
<LeonciomarkMargo - Last Filed: 11/03/18 10:49> Subjective - Date & Time of Evaluation Date of Evaluation: 11/03/18 Time of Evaluation: 08:00 - Subjective Subjective: Pt seen and examined at bedside. Reports his chest pain is now a 6/10, trops still elevated. Denies SOB, nausea or vomiting. Ambulating well, tolerating oral intake. Objective - Vital Signs/Intake and Output Vital Signs (last 24 hours): Temp Pulse Resp BP Pulse Ox 98.8 F 90 12 105/67 96 11/03/18 04:00 11/03/18 06:00 11/03/18 06:00 11/03/18 06:00 11/03/18 06:00 Intake and Output: 11/03/18 11/03/18 06:59 18:59 Intake Total 100 Output Total 600 Balance -500 - Medications Medications: Current Medications Amlodipine Besylate (Norvasc) 10 mg PO DAILY [facility] Last Admin: 11/02/18 17:36 Dose: 10 mg Aspirin (Aspirin Chewable) 81 mg PO DAILY [facility] Last Admin: 11/02/18 09:15 Dose: 81 mg Atorvastatin Calcium (Lipitor) 40 mg PO DAILY [facility] Last Admin: 11/02/18 11:49 Dose: 40 mg Buspirone HCl (Buspar) 10 mg PO DAILY [facility] Last Admin: 11/02/18 09:15 Dose: 10 mg Clopidogrel Bisulfate (Plavix) 75 mg PO DAILY [facility] Last Admin: 11/02/18 09:14 Dose: 75 mg Docusate Sodium (Colace) 100 mg PO BID PRN PRN Reason: Constipation Enoxaparin Sodium (Lovenox) 70 mg SC Q12 [facility]; Protocol Last Admin: 11/02/18 21:02 Dose: 70 mg Fenofibrate (Tricor) 145 mg PO DAILY [facility] Last Admin: 11/02/18 11:47 Dose: 145 mg Gabapentin (Neurontin) 300 mg PO TID [facility] Last Admin: 11/02/18 17:37 Dose: 300 mg Insulin Detemir (Levemir) 6 units SC HS [facility] Last Admin: 11/02/18 21:02 Dose: 6 unit Insulin Human Lispro (Humalog) 0 units SC ACCU-CHECK [facility]; Protocol Last Admin: 11/03/18 06:13 Dose: 1 u Levothyroxine Sodium (Synthroid) 25 mcg PO DAILY@0630 [facility] Last Admin: 11/03/18 06:13 Dose: 25 mcg Montelukast Sodium (Singulair) 10 mg PO DAILY [facility] Last Admin: 11/02/18 11:48 Dose: 10 mg Pantoprazole Sodium (Protonix Ec Tab) 40 mg PO DAILY [facility] Last Admin: 11/02/18 09:14 Dose: 40 mg - Labs Labs: 11/03/18 04:25 11/03/18 04:25 PT 12.1 Seconds (9.8-13.1) 11/01/18 15:24 INR 1.1 11/01/18 15:24 APTT 56.7 Seconds (25.6-37.1) H 11/02/18 06:05 - Constitutional Appears: Non-toxic, No Acute Distress - Head Exam Head Exam: NORMAL INSPECTION, NORMOCEPHALIC - Eye Exam Eye Exam: Normal appearance - ENT Exam ENT Exam: Mucous Membranes Moist - Respiratory Exam Respiratory Exam: Clear to Ausculation Bilateral. absent: Chest Wall Tenderness, Rales, Rhonchi, Wheezes - Cardiovascular Exam Cardiovascular Exam: RRR, +S1, +S2 - GI/Abdominal Exam GI & Abdominal Exam: Soft, Normal Bowel Sounds. absent: Tenderness - Extremities Exam Extremities Exam: Normal Inspection. absent: Pedal Edema - Neurological Exam Neurological Exam: Alert, Awake, Oriented x3 Assessment and Plan - Assessment and Plan (Free Text) Assessment: 58 yo Male patient with PMH of anxiety, CAD, COPD, Diabetes, HTN and HLD is admitted due to NSTEMI. Plan: NSTEMI - acute, VSS - Trops x4 elevated, continue to follow trops till trend down - EKG: Normal Sinus Rhythm, normal QRS, no ST changes. - s/p nitro top and ASA 162, heparin bolus/infusion, and nitro drip - Utox + cocaine - c.w ASA 81, Plavix, Statin - c/w therapeutic Lovenox 70mg Q12 - Cardio consulted- Dr Osei- reached out to Dr Banerjee , pt's Scientific Editor who stated that he wants pt transferred to [facility] and pt will have a Cardiac cath in am. - Interventional Cardio- Dr. Devang valenzuela appreciated - Critical care consulted-Dr Fleming- bianca appreciated - Echo- 55-60% EF- wnl - NPO past midnight for cardiac cath tomorrow AM at [facility] Cocaine abuse - utox + cocaine - avoiding beta blockers for now - Counsled pt regarding Cocaine abuse HTN - chronic controlled - continue norvasc Diabetes Mellitus Tyoe 2 - chronic, uncontrolled - sliding scale coverage Lispro - accuchecks - HgA1c 8.1 - Levemir 6 units HS - F/u AM labs HDL, Hypertriglyceridemia - chronic, uncontrolled - on statin and fenofibrate - lipid panel elevated Hypothyroidism - chronic, controlled - TSH 1.83 11/01/18 -continue Synthroid DVT ppx - therapeutic Lovenox 70mg Q12 <Lena Orozco - Last Filed: 11/03/18 17:04> Objective - Vital Signs/Intake and Output Vital Signs (last 24 hours): Temp Pulse Resp BP Pulse Ox 98.2 F 99 H 16 122/80 97 11/03/18 16:00 11/03/18 16:00 11/03/18 16:00 11/03/18 16:00 11/03/18 16:00 Intake and Output: 11/03/18 11/03/18 06:59 18:59 Intake Total 100 22 Output Total 600 975 Balance -500 -953 - Medications Medications: Current Medications Amlodipine Besylate (Norvasc) 10 mg PO DAILY [facility] Last Admin: 11/03/18 08:45 Dose: 10 mg Aspirin (Aspirin Chewable) 81 mg PO DAILY [facility] Last Admin: 11/03/18 08:50 Dose: 81 mg Atorvastatin Calcium (Lipitor) 40 mg PO DAILY [facility] Last Admin: 11/03/18 08:50 Dose: 40 mg Buspirone HCl (Buspar) 10 mg PO DAILY [facility] Last Admin: 11/03/18 08:47 Dose: 10 mg Clopidogrel Bisulfate (Plavix) 75 mg PO DAILY [facility] Last Admin: 11/03/18 08:46 Dose: 75 mg Docusate Sodium (Colace) 100 mg PO BID PRN PRN Reason: Constipation Enoxaparin Sodium (Lovenox) 70 mg SC Q12 [facility]; Protocol Last Admin: 11/03/18 08:44 Dose: 70 mg Fenofibrate (Tricor) 145 mg PO DAILY [facility] Last Admin: 11/03/18 08:45 Dose: 145 mg Gabapentin (Neurontin) 300 mg PO TID [facility] Last Admin: 11/03/18 13:03 Dose: 300 mg Insulin Detemir (Levemir) 6 units SC HS [facility] Last Admin: 11/02/18 21:02 Dose: 6 unit Insulin Human Lispro (Humalog) 0 units SC ACCU-CHECK YAZMIN; Protocol Last Admin: 11/03/18 12:58 Dose: 2 u Levothyroxine Sodium (Synthroid) 25 mcg PO DAILY@0630 [facility] Last Admin: 11/03/18 06:13 Dose: 25 mcg Montelukast Sodium (Singulair) 10 mg PO DAILY [facility] Last Admin: 11/03/18 08:49 Dose: 10 mg Pantoprazole Sodium (Protonix Ec Tab) 40 mg PO DAILY [facility] Last Admin: 11/03/18 08:49 Dose: 40 mg - Labs Labs: 11/03/18 04:25 11/03/18 04:25 PT 12.2 Seconds (9.8-13.1) 11/03/18 11:30 INR 1.1 11/03/18 11:30 APTT 40.2 Seconds (25.6-37.1) H 11/03/18 11:30 Attending/Attestation - Attestation I have personally seen and examined this patient.: Yes I have fully participated in the care of the patient.: Yes I have reviewed all pertinent clinical information, including history, physical exam and plan: Yes Notes (Text): NSTEMI/Cocaine Induced ACS Cocaine Abuse HTN DM Type II Hyperlipidemia Hypothyroidism - cont ASA, Plavix, Statin - Heparin drip changed to Lovenox 1 mg sq q 12 -cont Nitroglycerine drip - Cardio consulted - Dr Osei - he rec to continue medical mgt and Dr Osei reached out to Dr Banerjee , pt's Scientific Editor who stated that he wants pt transferred to [facility] and pt will have a Cardiac cath tomorrow 11/04 - Counsled pt regarding Cocaine abuse - accucheck with coverage - started on Tricor -cont Levothyroxine
[2018-11-03] MEDS: Enoxaparin 80 mg Syringe SC SCH ×2 (08:44→21:06)
[2018-11-03] MEDS: Pantoprazole 40 mg EC Tab PO SCH (08:49)
[2018-11-03 12:17] LABS: INR 1.1; PROTHROMBIN TIME 12.2 Seconds (9.8-13.1)
[2018-11-03 12:20] LABS: PARTIAL THROMBOPLASTIN TIME 40.2 Seconds (25.6-37.1)
[2018-11-03] MEDS: Heparin 25,000units in D5W 25,000 UNITS/250 ML BAG IV SCH (12:21)
[2018-11-03] MEDS: Insulin Detemir 100 Units/ml Inj SC SCH (21:07)
[2018-11-03] MEDS: Nitroglycerin 2% Ointment Foilpak UD TOP SCH (21:12)
--- NOTE | 2018-11-03 21:17 | PN ---
DATE: 11/03/2018 SUBJECTIVE: The patient denies chest pain. He is in sinus tachycardia on the monitor. PHYSICAL EXAMINATION: VITAL SIGNS: Blood pressure 116/75, heart rate 103, temperature 98.1, respirations 20. HEENT: Normocephalic. CHEST: Clear. HEART: S1 and S2, regular. EXTREMITIES: No edema. LABORATORY DATA: Today's troponin are 0.329 and 0.285. Repeat troponin was yesterday, 0.506. Echocardiographic study report, normal ejection fraction, grade I abnormal relaxation pattern, [id number] mitral insufficiency. ASSESSMENT: 1. Status post [id number] myocardial infarction. 2. Coronary artery disease with history of coronary stenting some two years ago according to the patient. 3. Cocaine abuse. 4. Hyperlipidemia. 5. Diabetes mellitus. RECOMMENDATIONS: Continue aspirin 81 mg once a day, Lipitor 40 mg once a day, therapeutic subcutaneous Lovenox 70 mg twice a day, Plavix 75 mg once a day, Norvasc 10 mg once a day, Synthroid 25 mcg daily, TriCor at 145 mg daily. I discussed the case with Dr. Craft, who accepted transfer to [facility] which he is scheduled for tomorrow morning. The patient is scheduled to picket labor union at 6:30 in a.m. Subcutaneous Lovenox will be held after midnight and the choice of [facility] was based on the patient's request to be treated by his original manager sharepoint. The patient declined cardiac catheterization at [facility] by me which was offered to him yesterday. Brad Osei MD
--- NOTE | 2018-11-03 21:50 | PN ---
DATE: 11/03/2018 LOCATION: The patient in ICU, bed 432. TIME SPENT: 35 minutes. The patient is seen and evaluated at the bedside. Past medical, surgical, family, social history reviewed. Case discussed in multidisciplinary ICU rounds this morning. SUBJECTIVE: A 58-year-old male, nonsmoker, social EtOH, history significant for anxiety, coronary artery disease, status post cardiac catheterization in the past with unclear details, also known to have diabetes, hypertension and hyperlipidemia, also known to have obstructive sleep apnea on CPAP at home, admitted with complaining of left precordial pain with radiation to left upper extremity associated with shortness of breath, noted to have elevated troponin, negative chest x-ray, positive urine cocaine. Overnight, less short of breath, no chest pain, on Tridil, off heparin drip. This morning, alert, awake, able to ambulate to the bathroom. Denies shortness of breath, chest pain or palpitation. PHYSICAL EXAMINATION: VITAL SIGNS: Temperature 97.7, heart rate 88 to 90 and regular, respiratory rate 15 to 19 thoracoabdominal, blood pressure 121/77, saturation 96%. INTAKE AND OUTPUT: Intake and output 232 and 1700, negative balance 1468, weight 159 pounds. HEAD, EYES, EARS, NOSE AND THROAT: Pupils are reactive. Conjunctivae pink. Sclerae are white. NECK: Supple. Trachea central. CHEST: Bilateral breath sounds, clear to auscultation. HEART: Rhythm regular. S1, S2 normal intensity. No S3 or S4 gallop. No audible murmur. ABDOMEN: Bowel sounds present. Soft. Liver and spleen not palpable, Bladder not distended. EXTREMITIES: Without clubbing, cyanosis, or edema. NEUROLOGIC: Nonfocal. CURRENT MEDICATIONS: Amlodipine 10 mg p.o. daily, aspirin 81 mg p.o. daily, Lipitor 40 mg p.o. daily, BuSpar 10 mg p.o. daily, Plavix 75 mg p.o. daily, Humalog Accu-Chek with regular insulin coverage, Levemir 6 units subcu at bedtime, Synthroid 25 mcg daily, Singulair 10 mg p.o. daily, Protonix 40 mg p.o. daily. LABORATORY DATA: WBC 9.6, hemoglobin 14.6, hematocrit 42.7, platelet count 189, neutrophils 62.8, lymphocytes 24.2, monocytes 11.8. PT 12.1, INR 1.1, PTT 56.7, D-dimer 216. SMA-7: Sodium 135, potassium 3.8, chloride 102, CO2 of 22, blood urea nitrogen 24, creatinine 1, random glucose of 168, troponin 0.382/0.31/0.443. Microbiology none reported. Chest x-ray unremarkable. Echocardiogram done on 11/02/2018 shows EF 55% to 60%, transmitral Doppler flow pattern is grade 1 abnormal relaxation pattern, left atrium size is normal, [id number] mitral valve regurgitation, tricuspid valve regurgitation. EKG done on 11/02/2018 shows normal sinus rhythm. IMPRESSION: A 58-year-old male with history significant for diabetes, hypertension, hyperlipidemia, previous coronary artery disease, status post cardiac catheterization, obstructive sleep apnea, on CPAP at home, admitted with left precordial pain, positive troponin, normal EKG, remains pain free on current medications including aspirin, Plavix, nitro. Blood sugar is better controlled on insulin coverage. Appreciate Cardiology evaluation. Waiting for cardiac catheterization. Hypothyroidism, on Synthroid. Gastroesophageal reflux disease, on Protonix. History of anxiety, on BuSpar. On Lovenox 70 mg subcu every 12 hours, Tricor 145 mg p.o. daily, Colace 100 mg p.o. twice daily. Nik Fleming MD
[2018-11-04 02:05] VITALS: PULSE 89
[2018-11-04] MEDS: Nitroglycerin 2% Ointment Foilpak UD TOP SCH (04:12)
[2018-11-04 05:33] LABS: BASO # 0.1 K/uL (0.0-0.2); BASO % 0.7 % (0.0-2.0); EOS # 0.1 K/uL (0.0-0.7); HEMOGLOBIN 14.1 g/dL (12.0-18.0); LYMPH # 2.3 K/uL (1.0-4.3); LYMPH % 24.4 % (20.0-40.0); MEAN CELL VOLUME 88.9 fl (80.0-94.0); MEAN CORPUSCULAR HEMOGLOBIN 31.5 pg (27.0-31.0); MEAN CORPUSCULAR HGB CONC 35.5 g/dL (33.0-37.0); MONO # 1.1 K/uL (0.0-0.8); MONO % 12.1 % (0.0-10.0); NEUT # 5.7 K/uL (1.8-7.0); NEUT % 61.8 % (50.0-75.0); NRBC % 0.1 % (0.0-0.0); RBC 4.47 Mil/uL (4.40-5.90); RED CELL DISTRIBUTION WIDTH 13.3 % (11.5-14.5); WHITE BLOOD COUNT 9.3 K/uL (4.8-10.8)
[2018-11-04 05:35] LABS: INR 1.1; PROTHROMBIN TIME 12.6 Seconds (9.8-13.1)
[2018-11-04 05:38] LABS: PARTIAL THROMBOPLASTIN TIME 38.4 Seconds (25.6-37.1)
[2018-11-04 05:50] LABS: BLOOD UREA NITROGEN 20 mg/dl (9-20); CALCIUM 9.7 mg/dL (8.4-10.2); GFR NON-AFRICAN AMERICAN > 60
[2018-11-04 05:58] VITALS: BP 113/70; RESP 16; TEMP 98.2; O2SAT 95
[2018-11-04] MEDS: Levothyroxine 25 MCG TAB PO SCH (06:11)
[2018-11-04] MEDS: Insulin Lispro (humaLOG) 100 Units/ml Inj SC SCH (07:01)
--- NOTE | 2018-11-04 07:24 | CP.PCM.DIS ---
Provider - Provider Date of Admission: 11/01/18 16:53 Attending physician: Jonathan Ryan MD Consults: 11/01/18 17:26 Cardiology Consult Stat Comment: Consulting Provider: Brad Osei Consulting Physician: Brad Osei Reason for Consult: NSTEMI 11/01/18 17:35 Critical Care Consult Stat Comment: Consulting Provider: Nik Fleming V Consulting Physician: Nik Fleming V Reason for Consult: NSTEMI, chest pain 11/02/18 08:00 Social Work Referral Routine Comment: + COCAINE IN THE URINE Physician Instructions: Reason For Exam: ROUTINE Time Spent in preparation of Discharge (in minutes): 33 Diagnosis - Discharge Diagnosis (1) Chest pain Status: Acute Priority: High (2) Cocaine abuse Status: Acute Priority: High (3) NSTEMI (non-ST elevated myocardial infarction) Status: Acute Priority: High Hospital Course - Lab Results Lab Results: Micro Results 11/01/18 20:50 Naris MRSA Culture (Admit) - Final MRSA NOT DETECTED Most Recent Lab Values WBC 9.3 K/uL (4.8-10.8) 11/04/18 04:29 RBC 4.47 Mil/uL (4.40-5.90) 11/04/18 04:29 Hgb 14.1 g/dL (12.0-18.0) 11/04/18 04:29 Hct 39.7 % (35.0-51.0) 11/04/18 04:29 MCV 88.9 fl (80.0-94.0) D 11/04/18 04:29 MCH 31.5 pg (27.0-31.0) H 11/04/18 04:29 MCHC 35.5 g/dL (33.0-37.0) 11/04/18 04:29 RDW 13.3 % (11.5-14.5) 11/04/18 04:29 Plt Count 202 K/uL (130-400) 11/04/18 04:29 MPV 11.0 fl (7.2-11.7) 11/04/18 04:29 Neut % (Auto) 61.8 % (50.0-75.0) 11/04/18 04:29 Lymph % (Auto) 24.4 % (20.0-40.0) 11/04/18 04:29 [place] % (Auto) 12.1 % (0.0-10.0) H 11/04/18 04:29 Eos % (Auto) 1.0 % (0.0-4.0) 11/04/18 04:29 Baso % (Auto) 0.7 % (0.0-2.0) 11/04/18 04:29 Neut # (Auto) 5.7 K/uL (1.8-7.0) 11/04/18 04:29 Lymph # (Auto) 2.3 K/uL (1.0-4.3) 11/04/18 04:29 [place] # (Auto) 1.1 K/uL (0.0-0.8) H 11/04/18 04:29 Eos # (Auto) 0.1 K/uL (0.0-0.7) 11/04/18 04:29 Baso # (Auto) 0.1 K/uL (0.0-0.2) 11/04/18 04:29 PT 12.6 Seconds (9.8-13.1) 11/04/18 04:29 INR 1.1 11/04/18 04:29 APTT 38.4 Seconds (25.6-37.1) H 11/04/18 04:29 D-Dimer, Quantitative 216 ng/mlDDU (0-230) 11/01/18 15:24 Sodium 135 mmol/l (132-148) 11/04/18 04:29 Potassium 4.0 MMOL/L (3.6-5.0) 11/04/18 04:29 Chloride 100 mmol/L (98-107) 11/04/18 04:29 Carbon Dioxide 24 mmol/L (22-30) 11/04/18 04:29 Anion Gap 15 (10-20) 11/04/18 04:29 BUN 20 mg/dl (9-20) 11/04/18 04:29 Creatinine 1.0 mg/dl (0.8-1.5) 11/04/18 04:29 Est GFR ( Amer) > 60 11/04/18 04:29 Est GFR (Non-Af Amer) > 60 11/04/18 04:29 POC Glucose (mg/dL) 184 mg/dL (65-110) H 11/04/18 04:27 Random Glucose 224 mg/dL (75-110) H 11/04/18 04:29 Hemoglobin A1c 8.1 % (4.2-6.5) H 11/02/18 06:55 Calcium 9.7 mg/dL (8.4-10.2) 11/04/18 04:29 Phosphorus 3.1 mg/dl (2.5-4.5) 11/01/18 15:24 Magnesium 2.1 MG/DL (1.6-2.3) 11/01/18 15:24 Total Bilirubin 0.6 mg/dl (0.2-1.3) 11/01/18 15:24 AST 27 U/L (17-59) 11/01/18 15:24 ALT 29 U/L (21-72) 11/01/18 15:24 Alkaline Phosphatase 77 U/L (38-126) 11/01/18 15:24 Troponin I 0.2850 ng/mL (0.00-0.120) H* 11/03/18 14:33 NT-Pro-B Natriuret Pep 126 pg/ml (0-900) 11/01/18 15:24 Total Protein 7.6 G/DL (6.3-8.2) 11/01/18 15:24 Albumin 4.3 g/dL (3.5-5.0) 11/01/18 15:24 Globulin 3.3 gm/dL (2.2-3.9) 11/01/18 15:24 Albumin/Globulin Ratio 1.3 (1.0-2.1) 11/01/18 15:24 Triglycerides 457 mg/DL (0-149) H 11/02/18 06:05 Cholesterol 188 mg/dL (0-199) 11/02/18 06:05 LDL Cholesterol Direct 131 mg/dL (0-129) H 11/02/18 06:05 HDL Cholesterol 28 MG/DL (30-70) L 11/02/18 06:05 TSH 3rd Generation 1.83 mIU/ML (0.46-4.68) 11/01/18 15:24 Urine Color Yellow (YELLOW) 11/01/18 19:45 Urine Clarity Clear (Clear) 11/01/18 19:45 Urine pH 6.0 (5.0-8.0) 11/01/18 19:45 Ur Specific [place] 1.023 (1.003-1.030) 11/01/18 19:45 Urine Protein Negative mg/dL (NEGATIVE) 11/01/18 19:45 Urine Glucose (UA) >=500 mg/dL (NEGATIVE) 11/01/18 19:45 Urine Ketones Negative mg/dL (NEGATIVE) 11/01/18 19:45 Urine Blood Negative (NEGATIVE) 11/01/18 19:45 Urine Nitrate Negative (NEGATIVE) 11/01/18 19:45 Urine Bilirubin Negative (NEGATIVE) 11/01/18 19:45 Urine Urobilinogen 1.0 mg/dL (0.2-1.0) 11/01/18 19:45 Ur Leukocyte Esterase Neg Ector/uL (Negative) 11/01/18 19:45 Urine RBC (Auto) 2 /hpf (0-3) 11/01/18 19:45 Urine Microscopic WBC 1 /hpf (0-5) 11/01/18 19:45 Ur Squamous Epith Cells < 1 /hpf (0-5) 11/01/18 19:45 Urine Opiates Screen Negative (NEGATIVE) 11/01/18 16:02 Urine Methadone Screen Negative (NEGATIVE) 11/01/18 16:02 Ur Barbiturates Screen Negative (NEGATIVE) 11/01/18 16:02 Ur Phencyclidine Scrn Negative (NEGATIVE) 11/01/18 16:02 Ur Amphetamines Screen Negative (NEGATIVE) 11/01/18 16:02 U Benzodiazepines Scrn Negative (NEGATIVE) 11/01/18 16:02 U Oth Cocaine Metabols Positive (NEGATIVE) H 11/01/18 16:02 U Cannabinoids Screen Negative (NEGATIVE) 11/01/18 16:02 Blood Type A POSITIVE 11/01/18 15:38 Blood Type Confirm A POSITIVE 11/02/18 10:00 Antibody Screen Negative 11/01/18 15:38 BBK History Checked No verified bt 11/01/18 15:38 - Hospital Course Hospital Course: DC summary as per review of MR : 58 YO male with a PMHx of anxiety, CAD, COPD, diabetes, HTN, Hypothyroidism and hypercholesterolemia presented to the ED complaining of left-sided chest pain, found to have NSTEMI/Cocaine Induced ACS with Trops x4 elevated, EKG revealed Normal Sinus Rhythm, normal QRS, no ST changes. Patient was treated with ASA, Plavix, Statin, Heparin drip changed to Lovenox 1 mg sq q 12. Cardiology was consulted Dr Osei reached out to Dr Banerjee ( [employer] Consulting Manager) who recommended for patient to be transferred to [facility] [place] for cardiac cath and further eval. Patient was transferred today early AM to [facility] for cardiac cath, hemodinamically stable. Discharge Exam - Head Exam Head Exam: NORMAL INSPECTION, NORMOCEPHALIC - Additional Findings Additional findings: Without physical exam Discharge Plan - Follow Up Plan Condition: CRITICAL Disposition: Trans to Other Acute Care Hosp
== END 2018-11-04 13:00 | disposition short-term general hospital (02) | DRG 282 ==
LOC: H.ER 14:24 → H.ERHOLD 16:53 → H.ICU/CCU 20:10
DX: I21.4 Non-ST elevation (NSTEMI) myocardial infarction (principal); I25.10 Atherosclerotic heart disease of native coronary artery without angina pectoris; F14.10 Cocaine abuse, uncomplicated; G47.33 Obstructive sleep apnea (adult) (pediatric); Z95.5 Presence of coronary angioplasty implant and graft; D72.829 Elevated white blood cell count, unspecified; E11.9 Type 2 diabetes mellitus without complications; E03.9 Hypothyroidism, unspecified; I10 Essential (primary) hypertension; E78.5 Hyperlipidemia, unspecified; E78.00 Pure hypercholesterolemia, unspecified; K21.9 Gastro-esophageal reflux disease without esophagitis; J44.9 Chronic obstructive pulmonary disease, unspecified; F41.9 Anxiety disorder, unspecified; F17.200 Nicotine dependence, unspecified, uncomplicated

== ENCOUNTER 2018-11-28 11:34 | Emergency (ER) | payer MEDICARE ==
[2018-11-28 11:42] VITALS: BMI 25.9
[2018-11-28] MEDS ORDERED: Albuterol-Ipratrop 3 mg / 0.5 (3 ml) UD INH STA ×2 (11:58→14:02)
--- NOTE | 2018-11-28 12:03 | ED PDOC ---
HPI: Chest Pain Time Seen by Provider: 11/28/18 11:46 Chief Complaint (Nursing): Shortness Of Breath Chief Complaint (Provider): Chest Pain History Per: Patient History/Exam Limitations: no limitations Onset/Duration Of Symptoms: Days Current Symptoms Are (Timing): Still Present Additional Complaint(s): Patient is a 58 y/o male with an extensive PMHx including OCPD and asthma who presents to the ED for evaluation of chest pain associated with a dry, non- productive cough since CABG on 11/16/2018. Patient claims as a result he has been unable to sleep all night. Patient reports he has been using his nebulizer but otherwise has not taken any pain medication for relief. PCP: Dr. Cydney Whitt Past Medical History Reviewed: Historical Data, Nursing Documentation, Vital Signs Vital Signs: Last Vital Signs Temp 98.3 F 11/28/18 11:42 Pulse 89 11/28/18 11:42 Resp 20 11/28/18 11:52 BP 111/71 11/28/18 11:42 Pulse Ox 100 11/28/18 11:52 Primary Care Provider: Cydney Whitt I - Medical History PMH: Anxiety, Asthma, CAD, COPD, Diabetes, HTN, Hypercholesterolemia, Sleep Apnea Denies: Chronic Kidney Disease - Surgical History Surgical History: CABG - Family History Family History: States: Hypertension - Social History Current smoker - smoking cessation education provided: No Ex-Smoker (has not smoked in the last 12 months): No - Home Medications Home Medications: Ambulatory Orders Medication Instructions Recorded Clopidogrel [Plavix] 75 mg PO DAILY 11/01/18 Fenofibrate [Triglide] 160 mg PO DAILY 11/01/18 Gabapentin [Neurontin] 300 mg PO TID 11/01/18 Levothyroxine [Synthroid] 25 mcg PO DAILY 11/01/18 Montelukast [Singulair] 10 mg PO DAILY 11/01/18 Sitagliptin Phos/Metformin HCl 1,000 mg PO DAILY 11/01/18 [Janumet Xr 100-1,000 mg Tablet] amLODIPine [Norvasc] 10 mg PO DAILY 11/01/18 busPIRone [Buspar] 10 mg PO DAILY 11/01/18 Aspirin [Aspirin Chewable] 81 mg PO DAILY chew 11/04/18 Atorvastatin [Lipitor] 40 mg PO DAILY tab 11/04/18 Docusate [Colace] 100 mg PO BID PRN cap 11/04/18 Enoxaparin [Lovenox] 70 mg SC Q12 syr 11/04/18 Fenofibrate [Tricor] 145 mg PO DAILY tab 11/04/18 Insulin Detemir [Levemir] 6 units SC HS vial 11/04/18 Nitroglycerin 2% [Nitro-Bid 2% 1 ea TOP Q6 fp 11/04/18 Oint] Pantoprazole [Protonix EC Tab] 40 mg PO DAILY ect 11/04/18 amLODIPine [Norvasc] 10 mg PO DAILY tab 11/04/18 Albuterol 0.083% [Albuterol 0.083% 3 ml IH Q6H PRN #30 neb 11/28/18 Inhal Veronique (2.5 mg/3 ml) UD] Guaifenesin [Mucinex] 600 mg PO BID PRN #10 tab.er.12h 11/28/18 Nitrofurantoin Macrocrystals 100 mg PO BID #9 cap 11/28/18 [Macrobid] - Allergies Allergies/Adverse Reactions: Allergies Allergy/AdvReac Type Severity Reaction Status Date / Time No Known Allergies Allergy Verified 11/02/18 08:33 Review of Systems ROS Statement: Except As Marked, All Systems Reviewed And Found Negative Cardiovascular: Positive for: Chest Pain Respiratory: Positive for: Cough (dry, non-productive), Shortness of Breath Neurological: Negative for: Weakness, Numbness Physical Exam - Reviewed Nursing Documentation Reviewed: Yes Vital Signs Reviewed: Yes - Physical Exam Appears: Positive for: No Acute Distress Head Exam: Positive for: ATRAUMATIC, NORMAL INSPECTION, NORMOCEPHALIC Skin: Positive for: Normal Color, Warm, DRY Eye Exam: Positive for: EOMI, Normal appearance, PERRL Neck: Positive for: Normal, Painless ROM, Supple Cardiovascular/Chest: Positive for: Regular Rate, Rhythm, Other (left anterior chest wall tenderness; sternal incision clean, dry, and intact). Negative for: Murmur Respiratory: Positive for: Wheezing (bialterally) Gastrointestinal/Abdominal: Positive for: Normal Exam, Soft. Negative for: Tenderness Back: Positive for: Normal Inspection. Negative for: L CVA Tenderness, R CVA Tenderness Extremity: Positive for: Normal ROM. Negative for: Pedal Edema, Deformity Neurological/Psych: Positive for: Awake, Alert, Oriented (x3), Other (speaking full sentences) - Laboratory Results Result Diagrams: 11/28/18 12:15 11/28/18 12:15 - ECG O2 Sat by Pulse Oximetry: 100 (RA) Pulse Ox Interpretation: Normal Medical Decision Making Medical Decision Making: Time: 1157 Impression: Chest Pain Associated With Cough Plan: EKG CMP Drug Screen, Urine Troponin I Urine Dipstick CBC PTT Prothrombin Time CXR UA Time: 1400 CXR FINDINGS: LUNGS: Mild elevation left hemidiaphragm is appreciated, possibly the postoperative the process as interval surgical clips seen throughout the left side of the medias tinum and throughout the sternum as well. No definite alveolitis bilaterally. Calcified granuloma again seen the inferior right lung zone. PLEURA: No significant pleural effusion identified. No pneumothorax apparent. CARDIOVASCULAR: No aortic atherosclerotic calcification present. Normal cardiac size. No pulmonary vascular congestion. OSSEOUS STRUCTURES: No significant abnormalities. VISUALIZED UPPER ABDOMEN: Normal. OTHER FINDINGS: None. IMPRESSION: Prior median sternotomy and left-sided chest postoperative change identified in the interval with volume loss the left lung. Consider possible prior subtotal pneumonectomy. Clinically correlate further. Examination otherwise appears unremarkable. Stable calcified granuloma mid to inferior right lung zone. Time: 1430 Improved but remains with symptoms. Spoke with Dr. Gordon who agrees with plan to keep patient for one night of observation. Scribe Attestation: Documented by Garrett Sin, acting as a scribe Alesha Jade MD. Provider Scribe Attestation: All medical record entries made by the Scribe were at my direction and personally dictated by me. I have reviewed the chart and agree that the record accurately reflects my personal performance of the history, physical exam, medical decision making, and the department course for this patient. I have also personally directed, reviewed, and agree with the discharge instructions and disposition. Disposition - Clinical Impression Clinical Impression: Asthma exacerbation, Chest wall pain, UTI (urinary tract infection) - Disposition Disposition: Against Medical Advice Disposition Time: 15:10 Condition: UNKNOWN Prescriptions: Albuterol 0.083% [Albuterol 0.083% Inhal Veronique (2.5 mg/3 ml) UD] 3 ml IH Q6H PRN #30 neb PRN Reason: Shortness Of Breath Guaifenesin [Mucinex] 600 mg PO BID PRN #10 tab.er.12h PRN Reason: Cough Nitrofurantoin Macrocrystals [Macrobid] 100 mg PO BID #9 cap Forms: [employer] (Lao)
[2018-11-28] MEDS ORDERED: Albuterol-Ipratrop 3 mg / 0.5 (3 ml) UD ONE (12:08)
[2018-11-28 12:37] LABS: BASO # 0.1 K/uL (0.0-0.2); BASO % 0.6 % (0.0-2.0); EOS # 0.3 K/uL (0.0-0.7); EOS % 2.2 % (0.0-4.0); HEMOGLOBIN 12.1 g/dL (12.0-18.0); LYMPH # 1.4 K/uL (1.0-4.3); LYMPH % 10.5 % (20.0-40.0); MEAN CELL VOLUME 88.8 fl (80.0-94.0); MEAN CORPUSCULAR HEMOGLOBIN 29.9 pg (27.0-31.0); MEAN CORPUSCULAR HGB CONC 33.7 g/dL (33.0-37.0); MONO # 1.3 K/uL (0.0-0.8); MONO % 10.3 % (0.0-10.0); NEUT # 9.9 K/uL (1.8-7.0); NEUT % 76.4 % (50.0-75.0); RBC 4.03 Mil/uL (4.40-5.90)
[2018-11-28 12:41] LABS: INR 1.3; PROTHROMBIN TIME 14.6 Seconds (9.8-13.1)
[2018-11-28 12:44] LABS: PARTIAL THROMBOPLASTIN TIME 29.2 Seconds (25.6-37.1)
[2018-11-28 12:47] LABS: ALB/GLOB RATIO 1.2 (1.0-2.1); ALT/SGPT 16 U/L (21-72); AST/SGOT 34 U/L (17-59); BLOOD UREA NITROGEN 20 mg/dl (9-20); CALCIUM 9.6 mg/dL (8.4-10.2); GFR NON-AFRICAN AMERICAN > 60
[2018-11-28 12:59] LABS: SQUAMOUS EPITHIAL 1 /hpf (0-5); URINE BILIRUBIN NEGATIVE (NEGATIVE); URINE BLOOD NEGATIVE (NEGATIVE); URINE CALCIUM OXALATE CRYSTALS MOD /hpf (<OCC); URINE CLARITY CLOUDY (Clear); URINE COLOR YELLOW (YELLOW); URINE GLUCOSE (UA) NEG (NEGATIVE); URINE LEUKOCYTE ESTERASE TRACE Leu/uL (Negative); URINE PROTEIN 30 mg/dL (NEGATIVE)
[2018-11-28 13:09] LABS: BARBITURATES, UR NEGATIVE (NEGATIVE); BENZODIAZEPINES, UR NEGATIVE (NEGATIVE); OPIATES, UR NEGATIVE (NEGATIVE); PHENCYCLIDINE, UR NEGATIVE (NEGATIVE)
--- NOTE | 2018-11-28 14:01 | RAD ---
Date of service: 11/28/2018 HISTORY: CP COMPARISON: Chest radiographs 11/01/2018. TECHNIQUE: Chest PA and lateral views FINDINGS: LUNGS: Mild elevation left hemidiaphragm is appreciated, possibly the postoperative the process as interval surgical clips seen throughout the left side of the mediastinum and throughout the sternum as well. No definite alveolitis bilaterally. Calcified granuloma again seen the inferior right lung zone. PLEURA: No significant pleural effusion identified. No pneumothorax apparent. CARDIOVASCULAR: No aortic atherosclerotic calcification present. Normal cardiac size. No pulmonary vascular congestion. OSSEOUS STRUCTURES: No significant abnormalities. VISUALIZED UPPER ABDOMEN: Normal. OTHER FINDINGS: None. IMPRESSION: Prior median sternotomy and left-sided chest postoperative change identified in the interval with volume loss the left lung. Consider possible prior subtotal pneumonectomy. Clinically correlate further. Examination otherwise appears unremarkable. Stable calcified granuloma mid to inferior right lung zone.
[2018-11-28 15:15] VITALS: BP 107/64; PULSE 93; RESP 18; TEMP 98.4
[2018-11-28 20:25] VITALS: O2SAT 100
--- NOTE | 2018-11-29 11:27 | CARD ---
APPROVED REPORT Date of service: 11/28/2018 EKG Measurement Heart [id number] <Conclusion> Normal sinus rhythm Possible Left atrial enlargement Nonspecific T wave abnormality Abnormal ECG
== END 2018-11-28 15:15 | disposition left against medical advice (07) ==
LOC: H.ER 11:34 → H.ERHOLD 14:33 → UNDOADMOB 14:33
DX: J45.901 Unspecified asthma with (acute) exacerbation (principal); N39.0 Urinary tract infection, site not specified; R07.89 Other chest pain; E11.9 Type 2 diabetes mellitus without complications; E78.00 Pure hypercholesterolemia, unspecified; I10 Essential (primary) hypertension; I25.10 Atherosclerotic heart disease of native coronary artery without angina pectoris; J44.9 Chronic obstructive pulmonary disease, unspecified; Z87.891 Personal history of nicotine dependence
CPT/HCPCS: 71046; 80053; 81003; 84484; 85025; 85610; 85730; 87040; 93005; 94150; 94640; 96374; 99285; G0480; J2930